=== PATIENT | male | born 1955 | race Caucasian/White ===

== ENCOUNTER → 2016-03-31 | Outpatient (CLI) | payer BC ==
[~2016-03-31] MED LIST: ISOVUE-370 76% 100ML VIAL (Q9967) As Ordered ONE
--- NOTE | 2016-03-31 18:57 | REP ---
Clinical: Follow up mediastinal adenopathy. Technique: Axial contrast enhanced images from the thoracic inlet to the upper abdomen using 100 ml Isovue 370 intravenous contrast material with coronal and sagittal re-formations. Comparison: 10/04/2015. Findings: Moderate/advanced COPD and emphysematous changes with lingular and right lower lobe scarring is unchanged. No acute consolidation, nodule or mass lesion. No pleural effusion/reaction or pneumothorax. Atherosclerotic changes to the coronary arteries and thoracic aorta noted without aortic aneurysm/dissection, cardiomegaly or pericardial effusion. Small stable hiatal hernia noted. Right paratracheal lymph node and smaller lymph nodes are again identified within the mediastinum and unchanged. Surrounding musculoskeletal structures are intact. Limited evaluation of the upper abdomen demonstrates normal bilateral adrenal glands. Impression: Moderate/advanced COPD and emphysematous changes with lingular and right basilar scarring unchanged. Right paratracheal lymph node stable. No new acute mediastinal or pleuroparenchymal process. Signed by Brandon Sidhu MD 03/31/2016 06:49 P
== END ==
LOC: M RAD 17:21
PROVIDERS: ATTEND Internal Medicine Pulmonary Disease
DX: R91.8 Other nonspecific abnormal finding of lung field (principal); J44.9 Chronic obstructive pulmonary disease, unspecified
CPT/HCPCS: 71260; Q9967

== ENCOUNTER → 2016-06-05 | Outpatient (REF) | payer OTHER ==
[2016-06-05 11:29] LABS: MEAN CORPUSCULAR HEMOGLOBIN 29.2 pg (27.0-33.0); MEAN CORPUSCULAR HGB CONC 33.4 g/dl (32.0-36.5); MEAN CORPUSCULAR VOLUME 87.2 fl (80.0-96.0); RED CELL DISTRIBUTION WIDTH 14.2 % (11.5-14.5); WHITE BLOOD COUNT 9.8 K/mm3 (4.0-10.0)
[2016-06-05 11:44] LABS: ALBUMIN 3.9 GM/DL (3.2-5.2); ALKALINE PHOSPHATASE 97 U/L (45-117); ALT/SGPT 28 U/L (12-78); ANION GAP 7 MEQ/L (8-16); AST/SGOT 18 U/L (15-37); BILIRUBIN,TOTAL 0.4 MG/DL (0.2-1.0); BLOOD UREA NITROGEN 17 MG/DL (7-18); CALCIUM LEVEL 8.8 MG/DL (8.5-10.1); CARBON DIOXIDE LEVEL 28 MEQ/L (21-32); CHLORIDE LEVEL 104 MEQ/L (98-107); CHOLESTEROL LEVEL 145 MG/DL (<200); CREATININE FOR GFR 0.84 MG/DL (0.70-1.30); GLOMERULAR FILTRATION RATE > 60.0 (>56); GLUCOSE, FASTING 103 MG/DL (70-105); POTASSIUM SERUM 4.6 MEQ/L (3.5-5.1); SODIUM LEVEL 139 MEQ/L (136-145); TOTAL PROTEIN 7.8 GM/DL (6.4-8.2); TRIGLYCERIDES LEVEL 181 MG/DL (<150)
== END ==
LOC: M SFHCCLAY 06:46
PROVIDERS: ATTEND Family Medicine
DX: I10 Essential (primary) hypertension (principal); I73.89 Other specified peripheral vascular diseases; K22.70 Barrett's esophagus without dysplasia

== ENCOUNTER → 2016-10-09 | Outpatient (REF) | payer OTHER ==
[2016-10-09 11:57] LABS: MEAN CORPUSCULAR HGB CONC 33.6 g/dl (32.0-36.5); MEAN CORPUSCULAR VOLUME 86.2 fl (80.0-96.0); RED CELL DISTRIBUTION WIDTH 15.1 % (11.5-14.5); WHITE BLOOD COUNT 10.4 K/mm3 (4.0-10.0)
[2016-10-09 12:10] LABS: ANION GAP 8 MEQ/L (8-16); BLOOD UREA NITROGEN 19 MG/DL (7-18); CARBON DIOXIDE LEVEL 25 MEQ/L (21-32); CHLORIDE LEVEL 105 MEQ/L (98-107); GLOMERULAR FILTRATION RATE > 60.0 (>49); GLUCOSE, FASTING 95 MG/DL (80-110); SODIUM LEVEL 138 MEQ/L (136-145)
[2016-10-09 12:19] LABS: POTASSIUM SERUM 5.2 MEQ/L (3.5-5.1)
== END ==
LOC: M SFHCCLAY 07:05
PROVIDERS: ATTEND Family Medicine
DX: I10 Essential (primary) hypertension (principal); J44.9 Chronic obstructive pulmonary disease, unspecified

== ENCOUNTER → 2016-10-22 | Outpatient (CLI) | payer BC, OTHER ==
--- NOTE | 2016-10-22 12:26 | REP ---
Clinical: Sacroiliitis. Technique: AP, angled, and oblique views of the sacroiliac joints. Findings: The sacroiliac joints are relatively symmetric and without significant subchondral sclerosis or cystic change, spurring or fusion. Impression: Symmetric, relatively age-appropriate bilateral sacroiliac joints Signed by Brandon Sidhu MD 10/22/2016 12:18 P
== END ==
LOC: M WUC 11:09
PROVIDERS: ATTEND Physician Assistant
DX: M46.1 Sacroiliitis, not elsewhere classified (principal)

== ENCOUNTER → 2016-11-12 | Outpatient (CLI) | payer BC, OTHER ==
--- NOTE | 2016-11-13 10:27 | RADONC ---
RADIATION ONCOLOGY FOLLOWUP NOTE DATE: 11/12/2016 CHART NUMBER: [id number] DIAGNOSIS: Seminoma. STAGE II, T1N2M0. ECOG PERFORMANCE STATUS: 0. FOLLOWUP NOTE: Mr. Warner is a very pleasant 61-year-old white male with the diagnosis of a stage II, T1N2M0, right-sided testicular seminoma who is presenting to us today for routine followup visit 11 years post completion of external beam radiation therapy. The patient is being followed by me at this point for a lung nodule and is presently undergoing routine screening evaluations. REVIEW OF SYSTEMS: The patient's review of systems is noncontributory. Denies nausea, vomiting, fevers, chills, night sweats, diplopia, headaches, anxiety or depression, anorexia, weight loss, visual disturbances, chest pain, urinary or bowel difficulties, bone pain, or neurological problems. PHYSICAL EXAMINATION: The patient is a well-developed, well-nourished male in no acute distress. HEENT exam is normocephalic, atraumatic. Extraocular movements are intact. There is no palpable cervical, supraclavicular, infraclavicular, axillary, or inguinal lymphadenopathy present. Lungs are clear to auscultation and percussion. Heart has a regular rate and rhythm. Abdomen is benign with no hepatosplenomegaly, masses, or tenderness. Rectal examination reveals a normal anal sphincter tone. His prostate is smooth with no evidence of nodularity. Skeletal examination reveals no tenderness to pressure or percussion of the bony skeleton. Extremities reveal no clubbing, cyanosis, or edema. Neurologic exam is grossly intact, as is the remainder of the physical examination. ASSESSMENT: The patient is clinically doing well at this point. I am scheduling him for routine low- dose lung cancer screening CT. In the meantime, I have set him up for a followup visit in our office in 1 year. cc: Shadi Leon, DO [facility] Robbin Ibarra MD
== END ==
LOC: M ONCR 14:47
PROVIDERS: ATTEND Radiology Radiation Oncology
DX: C62.91 Malignant neoplasm of right testis, unspecified whether descended or undescended (principal)

== ENCOUNTER → 2017-04-23 | Outpatient (CLI) | payer BC, OTHER | LOC: M RAD 15:21 | DX: Z12.2 Encounter for screening for malignant neoplasm of respiratory organs (principal) ==

== ENCOUNTER → 2017-09-22 | Outpatient (CLI) | payer BC, OTHER ==
[2017-09-23 12:37] LABS: ANION GAP 7 MEQ/L (8-16); BLOOD UREA NITROGEN 18 MG/DL (7-18); CALCIUM LEVEL 8.7 MG/DL (8.8-10.2); CARBON DIOXIDE LEVEL 25 MEQ/L (21-32); CHLORIDE LEVEL 105 MEQ/L (98-107); CREATININE FOR GFR 0.96 MG/DL (0.70-1.30); GLOMERULAR FILTRATION RATE > 60.0 (>49); GLUCOSE, FASTING 100 MG/DL (70-100); POTASSIUM SERUM 4.5 MEQ/L (3.5-5.1); SODIUM LEVEL 137 MEQ/L (136-145)
== END ==
LOC: M CLY 15:00
DX: R10.12 Left upper quadrant pain (principal); R63.4 Abnormal weight loss; J44.9 Chronic obstructive pulmonary disease, unspecified
CPT/HCPCS: 80048

== ENCOUNTER → 2017-09-28 | Outpatient (CLI) | payer BC, OTHER ==
[~2017-09-28] MED LIST changes: +GASTROGRAFIN SOLUTION 30ML (Q9963) As Ordered; +ISOVUE-370 76% 100ML VIAL (Q9967) As Ordered; -ISOVUE-370 76% 100ML VIAL (Q9967) As Ordered ONE
== END ==
LOC: M RAD 14:13
DX: R63.4 Abnormal weight loss (principal); Z85.47 Personal history of malignant neoplasm of testis; K44.9 Diaphragmatic hernia without obstruction or gangrene; K57.30 Diverticulosis of large intestine without perforation or abscess without bleeding
CPT/HCPCS: Q9963

== ENCOUNTER → 2018-01-13 | Outpatient (CLI) | payer BC, OTHER | LOC: M ONCR 10:57 | DX: C62.91 Malignant neoplasm of right testis, unspecified whether descended or undescended (principal); Z53.8 Procedure and treatment not carried out for other reasons ==

== ENCOUNTER → 2018-03-31 | Outpatient (CLI) | payer BC ==
--- NOTE | 2018-03-31 15:01 | REP ---
Chest two views HISTORY: Hemoptysis Comparison: 09/22/2017 A minimal increase in interstitial markings is present in the lungs consistent with chronic interstitial fibrosis. The heart is normal in size. The pulmonary vasculature is normal in appearance. The bony structure is intact. IMPRESSION: Chronic interstitial fibrosis.
== END ==
LOC: M CLY 14:24
PROVIDERS: ATTEND Family Medicine
DX: R04.2 Hemoptysis (principal); J84.10 Pulmonary fibrosis, unspecified

== ENCOUNTER → 2018-05-12 | Outpatient (CLI) | payer BC, OTHER ==
--- NOTE | 2018-05-12 16:09 | REP ---
Clinical: Lung screening. History of nicotine dependence Comparison: 03/31/2016 Technique: Axial low-dose noncontrast images from the thoracic inlet to the upper abdomen using lung screening technique. Findings: The lung lam demonstrate moderate/advanced COPD and emphysematous changes along with chronic bibasilar fibroatelectatic changes. No acute consolidation, significant nodule or mass lesion appreciated. No pleural effusion/reaction or pneumothorax. Tracheobronchial tree is patent. Mediastinum demonstrates mild atherosclerotic changes of the coronary arteries without cardiomegaly. A moderate hiatal hernia suggested. Impression: 1. Lung-RADS category I-S. No nodule or suspicious abnormality. Chronic COPD/emphysematous changes with bibasilar scarring similar to 2017. Management recommendations include annual low-dose CT evaluation. 2. Small to moderate hiatal hernia suggested. 3. Atherosclerotic disease. Electronically Signed by Brandon Sidhu MD 05/12/2018 04:01 P
== END ==
LOC: M RAD 15:41
PROVIDERS: ATTEND Radiology Radiation Oncology
DX: Z12.2 Encounter for screening for malignant neoplasm of respiratory organs (principal); Z87.891 Personal history of nicotine dependence; J43.9 Emphysema, unspecified; I25.10 Atherosclerotic heart disease of native coronary artery without angina pectoris

== ENCOUNTER → 2018-06-22 | Outpatient (CLI) | payer BC, OTHER ==
--- NOTE | 2018-06-22 16:57 | REP ---
REASON: Cough. COMPARISON: Multiple, the latest 04/02/2018 Basilar fibrotic changes noted status quo. There is no significant change compared to multiple priors. There are no acute patchy parenchymal opacities or pleural effusions. The heart is not enlarged. The osseous structure is stable and intact. IMPRESSION:No evidence of acute cardiopulmonary disease. Stable appearing chronic changes as described above. Correlate clinically to rule out the possibility of acute disease superimposed on chronic change.
== END ==
LOC: M CLY 15:32
PROVIDERS: ATTEND Family Medicine
DX: R05 Cough (principal); R04.2 Hemoptysis

== ENCOUNTER → 2018-07-09 | Outpatient (REF) | payer OTHER ==
[2018-07-09 11:17] LABS: HEMATOCRIT 50.5 % (42.0-52.0); HEMOGLOBIN 16.5 g/dl (13.5-17.5); MEAN CORPUSCULAR HEMOGLOBIN 29.1 pg (27.0-33.0); MEAN CORPUSCULAR HGB CONC 32.7 g/dl (32.0-36.5); MEAN CORPUSCULAR VOLUME 89.1 fl (80.0-96.0); PLATELET COUNT, AUTOMATED 254 10^3/uL (150-450); RED BLOOD COUNT 5.67 10^6/uL (4.30-6.10); WHITE BLOOD COUNT 10.6 10^3/uL (4.0-10.0)
[2018-07-09 11:33] LABS: ALBUMIN 3.7 GM/DL (3.2-5.2); ALT/SGPT 47 U/L (12-78); BILIRUBIN,TOTAL 0.4 MG/DL (0.2-1.0); BLOOD UREA NITROGEN 20 MG/DL (7-18); CALCIUM LEVEL 8.7 MG/DL (8.8-10.2); CARBON DIOXIDE LEVEL 26 MEQ/L (21-32); CHLORIDE LEVEL 106 MEQ/L (98-107); CHOLESTEROL LEVEL 142 MG/DL (<200); CHOLESTEROL RISK RATIO 4.303 (<5); CREATININE FOR GFR 0.87 MG/DL (0.70-1.30); GLOMERULAR FILTRATION RATE > 60.0 (>49); GLUCOSE, FASTING 95 MG/DL (70-100); HDL CHOLESTEROL 33 MG/DL (>40); LDL CHOLESTEROL 77 MG/DL (<100); NON-HDL-C 109 MG/DL; POTASSIUM SERUM 4.9 MEQ/L (3.5-5.1); SODIUM LEVEL 138 MEQ/L (136-145); TOTAL PROTEIN 8.2 GM/DL (6.4-8.2); TRIGLYCERIDES LEVEL 160 MG/DL (<150)
== END ==
LOC: M SFHCCLAY 06:55
PROVIDERS: ATTEND Family Medicine
DX: Z12.5 Encounter for screening for malignant neoplasm of prostate (principal); J44.9 Chronic obstructive pulmonary disease, unspecified; I73.89 Other specified peripheral vascular diseases; I10 Essential (primary) hypertension; K22.70 Barrett's esophagus without dysplasia
CPT/HCPCS: 80053; 80061; 85027; G0103

== ENCOUNTER → 2018-12-24 | Outpatient (REF) | payer OTHER, BC | LOC: M LAB REF 11:31 | PROVIDERS: ATTEND Internal Medicine Pulmonary Disease | DX: R91.8 Other nonspecific abnormal finding of lung field (principal) ==

== ENCOUNTER → 2019-02-02 | Outpatient (CLI) | payer BC, OTHER ==
[~2019-02-02] MED LIST changes: -GASTROGRAFIN SOLUTION 30ML (Q9963) As Ordered; -ISOVUE-370 76% 100ML VIAL (Q9967) As Ordered; +ISOVUE-370 76% 100ML VIAL (Q9967) As Ordered ONE
--- NOTE | 2019-02-02 18:47 | REP ---
HISTORY: Chronic lung field changes seen on prior low dose screening CT examination of the chest on 05/12/2018. All prior CT examinations of the chest have been reviewed. CONTRAST: 100 mL Isovue-370. There is no mediastinal or hilar adenopathy. There are borderline sized mediastinal lymph nodes essentially unchanged from 03/31/2016. The large right paratracheal lymph node seen on that prior exam is no longer present. The imaged upper abdomen and imaged osseous structures are unchanged. There are no pleural or pericardial effusions. Evaluation of the lung lam again show rather extensive emphysematous changes, status quo. Curvilinear bibasilar densities are again noted likely representing chronic fibrotic and/or subsegmental atelectatic changes. There is widespread cylindrical bronchiectasis, status quo. No new nodules seem to have developed. IMPRESSION: 1. Mediastinal and hilar lymph nodes as described above. 2. Chronic lung field changes as described above. Electronically Signed by Brennen Moreno DO 02/03/2019 04:15 P
== END ==
LOC: M RAD 15:26
PROVIDERS: ATTEND Internal Medicine Pulmonary Disease
DX: J34.9 Unspecified disorder of nose and nasal sinuses (principal); J98.4 Other disorders of lung; J47.9 Bronchiectasis, uncomplicated
CPT/HCPCS: 71260; Q9967

== ENCOUNTER → 2019-09-08 | Outpatient (CLI) | payer BC, OTHER ==
--- NOTE | 2019-09-08 08:28 | REP ---
Clinical: COPD with chest pain . Comparison: 06/22/2018 . Technique: PA and lateral. Findings: The mediastinum and cardiac silhouette are normal. The lung lam demonstrate chronic interstitial changes consistent with the given history of COPD. No acute consolidation, effusion, or pneumothorax. The skeletal structures are intact and normal. Impression: 1. Stable chronic changes related to COPD. 2. No acute cardiopulmonary process. Electronically Signed by Brandon Sidhu MD 09/08/2019 08:20 A
--- NOTE | 2019-09-08 08:32 | REP ---
Clinical: Coccyalgia Technique: AP, AP oblique and lateral views of the sacrum and coccyx (four total views). Findings: The bilateral sacroiliac joints appear symmetric and normal. The sacrum and coccyx appear intact. The surrounding soft tissues are grossly unremarkable. Evidence for peripheral vascular disease noted. Impression: Relatively normal appearance to the sacrum/coccyx and sacroiliac joints. Electronically Signed by Brandon Sidhu MD 09/08/2019 08:23 A
== END ==
LOC: M CLY 07:40
PROVIDERS: ATTEND Family Medicine
DX: J44.9 Chronic obstructive pulmonary disease, unspecified (principal); M53.3 Sacrococcygeal disorders, not elsewhere classified

== ENCOUNTER → 2020-03-19 | Outpatient (CLI) | payer BC, OTHER ==
--- NOTE | 2020-03-19 10:32 | REP ---
INDICATION: HX OF SMOKING COMPARISON: 05/12/2018 TECHNIQUE: Axial noncontrast images from the thoracic inlet to the upper abdomen using low-dose lung screening technique (LDCT). FINDINGS: Advanced emphysematous changes with scattered bullae, bronchiectasis and minimal scattered scarring again noted and essentially unchanged. No consolidation, significant nodule, or mass lesion. Tracheobronchial tree is patent. Limited evaluation of the mediastinum demonstrates significant atherosclerotic disease along with small hiatal hernia. IMPRESSION: Lung-RADS category 1. No significant nodule or mass lesion. Chronic emphysematous changes similar to prior examination. Management recommendations include annual low-dose surveillance. <Electronically signed by Brandon Sidhu > 03/19/20 1027
== END ==
LOC: M RAD 09:59
PROVIDERS: ATTEND Family Medicine
DX: Z12.2 Encounter for screening for malignant neoplasm of respiratory organs (principal); Z87.891 Personal history of nicotine dependence; J43.9 Emphysema, unspecified

== ENCOUNTER → 2020-08-08 | Outpatient (REF) | payer OTHER ==
[2020-08-09 12:06] LABS: HEMATOCRIT 55.3 % (42.0-52.0); HEMOGLOBIN 17.5 g/dl (13.5-17.5); MEAN CORPUSCULAR HEMOGLOBIN 27.4 pg (27.0-33.0); MEAN CORPUSCULAR HGB CONC 31.6 g/dl (32.0-36.5); MEAN CORPUSCULAR VOLUME 86.5 fl (80.0-96.0); PLATELET COUNT, AUTOMATED 317 10^3/uL (150-450); RED BLOOD COUNT 6.39 10^6/uL (4.30-6.10); WHITE BLOOD COUNT 11.1 10^3/uL (4.0-10.0)
[2020-08-09 12:35] LABS: ALBUMIN 3.3 GM/DL (3.2-5.2); ALT/SGPT 67 U/L (12-78); BILIRUBIN,TOTAL 0.4 MG/DL (0.2-1.0); BLOOD UREA NITROGEN 19 MG/DL (7-18); CALCIUM LEVEL 9.1 MG/DL (8.8-10.2); CARBON DIOXIDE LEVEL 27 MEQ/L (21-32); CHLORIDE LEVEL 104 MEQ/L (98-107); CREATININE FOR GFR 0.98 MG/DL (0.70-1.30); FREE T4 1.17 NG/DL (0.76-1.46); GLOMERULAR FILTRATION RATE > 60.0 (>49); GLUCOSE, FASTING 91 MG/DL (70-100); POTASSIUM SERUM 5.8 MEQ/L (3.5-5.1); SODIUM LEVEL 137 MEQ/L (136-145); TOTAL PROTEIN 7.7 GM/DL (6.4-8.2)
== END ==
LOC: M SFHCCLAY 14:16
PROVIDERS: ATTEND Family Medicine
DX: R63.4 Abnormal weight loss (principal); I10 Essential (primary) hypertension; E78.2 Mixed hyperlipidemia; J44.9 Chronic obstructive pulmonary disease, unspecified; E29.1 Testicular hypofunction

== ENCOUNTER → 2020-08-16 | Outpatient (REF) | payer OTHER | LOC: M SFHCCLAY 13:07 | PROVIDERS: ATTEND Family Medicine | DX: E87.5 Hyperkalemia (principal) ==

== ENCOUNTER → 2020-09-11 | Outpatient (REF) | payer OTHER ==
[2020-09-11 11:33] LABS: HEMOGLOBIN 16.4 g/dl (13.5-17.5); MEAN CORPUSCULAR HGB CONC 32.2 g/dl (32.0-36.5); PLATELET COUNT, AUTOMATED 330 10^3/uL (150-450); RED BLOOD COUNT 5.86 10^6/uL (4.30-6.10); WHITE BLOOD COUNT 12.4 10^3/uL (4.0-10.0)
[2020-09-11 11:38] LABS: BLOOD UREA NITROGEN 19 MG/DL (7-18); CALCIUM LEVEL 9.4 MG/DL (8.8-10.2); CARBON DIOXIDE LEVEL 27 MEQ/L (21-32); CHLORIDE LEVEL 105 MEQ/L (98-107); CREATININE FOR GFR 0.83 MG/DL (0.70-1.30); GLOMERULAR FILTRATION RATE > 60.0 (>49); GLUCOSE, FASTING 116 MG/DL (70-100); POTASSIUM SERUM 4.4 MEQ/L (3.5-5.1); SODIUM LEVEL 138 MEQ/L (136-145)
== END ==
LOC: M SFHCCLAY 08:37
PROVIDERS: ATTEND Family Medicine
DX: R23.2 Flushing (principal); E29.1 Testicular hypofunction

== ENCOUNTER → 2020-11-30 | Outpatient (REF) | payer OTHER ==
[2020-11-30 12:10] LABS: BASO # 0.1 10^3/uL (0.0-0.2); BASO % 0.8 % (0.0-1.0); EOS # 0.3 10^3/uL (0.0-0.5); EOS % 3.2 % (0.0-3.0); HEMATOCRIT 50.4 % (42.0-52.0); HEMOGLOBIN 16.3 g/dl (13.5-17.5); LYMPH # 1.8 10^3/uL (1.5-5.0); LYMPH % 18.4 % (24.0-44.0); MEAN CORPUSCULAR HEMOGLOBIN 27.3 pg (27.0-33.0); MEAN CORPUSCULAR HGB CONC 32.3 g/dl (32.0-36.5); MEAN CORPUSCULAR VOLUME 84.6 fl (80.0-96.0); MONO # 0.6 10^3/uL (0.0-0.8); MONO % 5.6 % (2.0-8.0); NEUTROPHILS # 7.2 10^3/uL (1.5-8.5); NEUTROPHILS % 71.7 % (36.0-66.0); PLATELET COUNT, AUTOMATED 372 10^3/uL (150-450); RED BLOOD COUNT 5.96 10^6/uL (4.30-6.10)
[2020-11-30 12:37] LABS: BLOOD UREA NITROGEN 14 MG/DL (7-18); CALCIUM LEVEL 9.4 MG/DL (8.8-10.2); CARBON DIOXIDE LEVEL 28 MEQ/L (21-32); CHLORIDE LEVEL 102 MEQ/L (98-107); CREATININE FOR GFR 0.87 MG/DL (0.70-1.30); GLOMERULAR FILTRATION RATE > 60.0 (>49); GLUCOSE, FASTING 139 MG/DL (70-100); POTASSIUM SERUM 3.9 MEQ/L (3.5-5.1); SODIUM LEVEL 134 MEQ/L (136-145)
== END ==
LOC: M SFHCCLAY 08:46
PROVIDERS: ATTEND Family Medicine
DX: D72.829 Elevated white blood cell count, unspecified (principal); R73.01 Impaired fasting glucose

== ENCOUNTER → 2021-01-28 | Outpatient (REF) | payer OTHER ==
[2021-01-29 12:00] LABS: BASO # 0.1 10^3/uL (0.0-0.2); BASO % 0.7 % (0.0-1.0); EOS # 0.1 10^3/uL (0.0-0.5); HEMATOCRIT 54.5 % (42.0-52.0); HEMOGLOBIN 17.2 g/dl (13.5-17.5); LYMPH # 1.6 10^3/uL (1.5-5.0); LYMPH % 14.7 % (24.0-44.0); MEAN CORPUSCULAR HEMOGLOBIN 26.9 pg (27.0-33.0); MEAN CORPUSCULAR HGB CONC 31.6 g/dl (32.0-36.5); MEAN CORPUSCULAR VOLUME 85.2 fl (80.0-96.0); MONO # 0.7 10^3/uL (0.0-0.8); MONO % 6.2 % (2.0-8.0); NEUTROPHILS # 8.3 10^3/uL (1.5-8.5); NEUTROPHILS % 77.1 % (36.0-66.0); PLATELET COUNT, AUTOMATED 352 10^3/uL (150-450); WHITE BLOOD COUNT 10.8 10^3/uL (4.0-10.0)
[2021-01-29 12:26] LABS: ALBUMIN 3.4 GM/DL (3.2-5.2); ALT/SGPT 115 U/L (12-78); BILIRUBIN,TOTAL 0.5 MG/DL (0.2-1.0); BLOOD UREA NITROGEN 16 MG/DL (7-18); C REACTIVE PROTEIN QUANTITATIV 1.02 MG/DL (0.00-0.30); CALCIUM LEVEL 9.5 MG/DL (8.8-10.2); CARBON DIOXIDE LEVEL 23 MEQ/L (21-32); CHLORIDE LEVEL 101 MEQ/L (98-107); CREATININE FOR GFR 0.97 MG/DL (0.70-1.30); GLOMERULAR FILTRATION RATE > 60.0 (>49); GLUCOSE, FASTING 94 MG/DL (70-100); POTASSIUM SERUM 4.4 MEQ/L (3.5-5.1); SODIUM LEVEL 134 MEQ/L (136-145); TOTAL PROTEIN 7.9 GM/DL (6.4-8.2)
[2021-01-29 12:46] LABS: ERYTHROCYTE SEDIMENTATION RATE 8 mm/hr (0-20)
[2021-01-30 20:07] LABS: ANA (HEP2) Negative (.); Lyme Disease IgG/IgM Antibodie <0.91 ISR (0.00-0.90); Lyme Disease IgM Ab Quantitati <0.80 index (0.00-0.79)
== END ==
LOC: M SFHCCLAY 15:29
PROVIDERS: ATTEND Physician Assistant
DX: R42 Dizziness and giddiness (principal)

== ENCOUNTER → 2021-02-06 | Outpatient (REF) | payer OTHER ==
[2021-02-06 11:46] LABS: BASO # 0.1 10^3/uL (0.0-0.2); BASO % 0.9 % (0.0-1.0); EOS # 0.3 10^3/uL (0.0-0.5); HEMATOCRIT 53.8 % (42.0-52.0); HEMOGLOBIN 17.4 g/dl (13.5-17.5); LYMPH # 1.9 10^3/uL (1.5-5.0); LYMPH % 19.1 % (24.0-44.0); MEAN CORPUSCULAR HEMOGLOBIN 26.7 pg (27.0-33.0); MEAN CORPUSCULAR HGB CONC 32.3 g/dl (32.0-36.5); MEAN CORPUSCULAR VOLUME 82.5 fl (80.0-96.0); MONO # 0.7 10^3/uL (0.0-0.8); MONO % 7.1 % (2.0-8.0); NEUTROPHILS # 6.8 10^3/uL (1.5-8.5); NEUTROPHILS % 69.5 % (36.0-66.0); PLATELET COUNT, AUTOMATED 374 10^3/uL (150-450); RED BLOOD COUNT 6.52 10^6/uL (4.30-6.10); WHITE BLOOD COUNT 9.8 10^3/uL (4.0-10.0)
[2021-02-06 12:25] LABS: ALBUMIN 3.3 GM/DL (3.2-5.2); ALT/SGPT 86 U/L (12-78); BILIRUBIN,DIRECT 0.3 MG/DL (0.0-0.2); BILIRUBIN,TOTAL 0.6 MG/DL (0.2-1.0); TOTAL PROTEIN 8.1 GM/DL (6.4-8.2)
[2021-02-06 12:37] LABS: HEPATITIS B SURFACE ANTIGEN NEGATIVE (NEGATIVE)
[2021-02-06 13:05] LABS: HEPATITIS B CORE ANTIBODY IGM NEGATIVE (NEGATIVE); HEPATITIS C VIRUS ABY INDEX 0.1 INDEX (<0.8)
== END ==
LOC: M SFHCCLAY 09:25
PROVIDERS: ATTEND Physician Assistant
DX: R79.89 Other specified abnormal findings of blood chemistry (principal)

== ENCOUNTER → 2021-03-27 | Outpatient (REF) | payer OTHER ==
[2021-03-27 11:40] LABS: BASO # 0.1 10^3/uL (0.0-0.2); BASO % 1.2 % (0.0-1.0); EOS # 0.4 10^3/uL (0.0-0.5); EOS % 3.7 % (0.0-3.0); HEMATOCRIT 56.1 % (42.0-52.0); HEMOGLOBIN 17.7 g/dl (13.5-17.5); LYMPH % 21.5 % (24.0-44.0); MEAN CORPUSCULAR HEMOGLOBIN 26.5 pg (27.0-33.0); MEAN CORPUSCULAR HGB CONC 31.6 g/dl (32.0-36.5); MEAN CORPUSCULAR VOLUME 84.1 fl (80.0-96.0); MONO # 0.7 10^3/uL (0.0-0.8); MONO % 7.2 % (2.0-8.0); NEUTROPHILS # 6.2 10^3/uL (1.5-8.5); PLATELET COUNT, AUTOMATED 328 10^3/uL (150-450); RED BLOOD COUNT 6.67 10^6/uL (4.30-6.10); WHITE BLOOD COUNT 9.3 10^3/uL (4.0-10.0)
[2021-03-27 12:16] LABS: ALBUMIN 3.4 GM/DL (3.2-5.2); ALT/SGPT 69 U/L (12-78); BILIRUBIN,TOTAL 0.4 MG/DL (0.2-1.0); BLOOD UREA NITROGEN 16 MG/DL (7-18); CALCIUM LEVEL 9.5 MG/DL (8.8-10.2); CARBON DIOXIDE LEVEL 30 MEQ/L (21-32); CHLORIDE LEVEL 102 MEQ/L (98-107); CREATININE FOR GFR 0.95 MG/DL (0.70-1.30); GLOMERULAR FILTRATION RATE > 60.0 (>49); GLUCOSE, FASTING 106 MG/DL (70-100); POTASSIUM SERUM 4.6 MEQ/L (3.5-5.1); SODIUM LEVEL 137 MEQ/L (136-145); TOTAL PROTEIN 7.7 GM/DL (6.4-8.2)
[2021-03-28 23:07] LABS: ERYTHROPOIETIN 11.3 mIU/mL (2.6-18.5)
== END ==
LOC: M SFHCCLAY 09:29
PROVIDERS: ATTEND Physician Assistant
DX: R71.8 Other abnormality of red blood cells (principal)

== ENCOUNTER → 2021-04-04 | Outpatient (REF) | payer OTHER ==
[2021-04-04 12:18] LABS: ALBUMIN 3.5 GM/DL (3.2-5.2); ALT/SGPT 64 U/L (12-78); BILIRUBIN,TOTAL 0.5 MG/DL (0.2-1.0); BLOOD UREA NITROGEN 15 MG/DL (7-18); CALCIUM LEVEL 10.1 MG/DL (8.8-10.2); CARBON DIOXIDE LEVEL 28 MEQ/L (21-32); CHLORIDE LEVEL 102 MEQ/L (98-107); CREATININE FOR GFR 0.89 MG/DL (0.70-1.30); FERRITIN 59 NG/ML (26-388); GLOMERULAR FILTRATION RATE > 60.0 (>49); GLUCOSE, FASTING 107 MG/DL (70-100); IRON (FE) 66 UG/DL (65-175); PERCENT SATURATION 19.2 % (19.7-50.0); POTASSIUM SERUM 4.5 MEQ/L (3.5-5.1); SODIUM LEVEL 139 MEQ/L (136-145); TOTAL IRON BINDING CAPACITY 343 UG/DL (250-450); TOTAL PROTEIN 7.9 GM/DL (6.4-8.2)
== END ==
LOC: M SFHCCLAY 09:09
PROVIDERS: ATTEND Family Medicine
DX: Z87.891 Personal history of nicotine dependence (principal)

== ENCOUNTER → 2021-04-16 | Outpatient (CLI) | payer BC, OTHER | LOC: M RAD 06:28 | PROVIDERS: ATTEND Family Medicine | DX: R79.89 Other specified abnormal findings of blood chemistry (principal) ==

== ENCOUNTER → 2021-04-29 | Outpatient (CLI) | payer BC, OTHER | LOC: M RAD 13:27 | PROVIDERS: ATTEND Family Medicine | DX: Z87.891 Personal history of nicotine dependence (principal) ==

== ENCOUNTER → 2021-05-08 | Outpatient (REF) | payer OTHER ==
[2021-05-08 15:48] LABS: BASO # 0.1 10^3/uL (0.0-0.2); BASO % 0.8 % (0.0-1.0); EOS # 0.2 10^3/uL (0.0-0.5); EOS % 1.5 % (0.0-3.0); HEMATOCRIT 51.8 % (42.0-52.0); HEMOGLOBIN 17.1 g/dl (13.5-17.5); LYMPH # 1.9 10^3/uL (1.5-5.0); LYMPH % 15.5 % (24.0-44.0); MEAN CORPUSCULAR HEMOGLOBIN 27.5 pg (27.0-33.0); MEAN CORPUSCULAR VOLUME 83.3 fl (80.0-96.0); MONO # 0.9 10^3/uL (0.0-0.8); MONO % 7.1 % (2.0-8.0); NEUTROPHILS % 74.8 % (36.0-66.0); PLATELET COUNT, AUTOMATED 271 10^3/uL (150-450); RED BLOOD COUNT 6.22 10^6/uL (4.30-6.10)
== END ==
LOC: M SFHCCLAY 10:23
PROVIDERS: ATTEND Physician Assistant
DX: R42 Dizziness and giddiness (principal)

== ENCOUNTER 2021-06-30 07:20 | Emergency (ER) | payer BC, OTHER ==
[~2021-06-30] VITALS: Ht 170.2 cm; Wt 63.2 kg
[2021-06-30] MEDS ORDERED: PANT40TA29 (07:39)
[2021-06-30] MEDS ORDERED: PARO20TA3 (07:39)
[2021-06-30] MEDS ORDERED: ALPR0.5T3 (07:39)
[2021-06-30] MEDS ORDERED: ROSU10TA6 (07:39)
[2021-06-30] MEDS ORDERED: BISO1TAB17 (07:39)
[2021-06-30] MEDS ORDERED: GABA-282 (07:39)
[2021-06-30] MEDS ORDERED: AMLO1TAB25 (07:39)
[2021-06-30] MEDS ORDERED: LOSA50TA28 (07:39)
[2021-06-30] MEDS ORDERED: CLOP75TA2 (07:39)
[2021-06-30] MEDS ORDERED: METH1CAP (07:39)
[2021-06-30] MEDS ORDERED: SPIR1AER (07:39)
[2021-06-30 09:25] LABS: HEMOGLOBIN 17.1 g/dl (13.5-17.5); MEAN CORPUSCULAR HGB CONC 33.5 g/dl (32.0-36.5); MEAN CORPUSCULAR VOLUME 83.5 fl (80.0-96.0); PLATELET COUNT, AUTOMATED 322 10^3/uL (150-450); RED BLOOD COUNT 6.11 10^6/uL (4.30-6.10); WHITE BLOOD COUNT 12.1 10^3/uL (4.0-10.0)
[2021-06-30 09:41] LABS: RSV AMPLIFICATION NEGATIVE (NEGATIVE)
[2021-06-30 09:54] LABS: ACETAMINOPHEN LEVEL < 2.0 UG/ML (10.0-30.0); ALBUMIN 3.6 GM/DL (3.2-5.2); ALT/SGPT 166 U/L (12-78); BILIRUBIN,DIRECT 0.2 MG/DL (0.0-0.2); BILIRUBIN,TOTAL 0.7 MG/DL (0.2-1.0); BLOOD UREA NITROGEN 16 MG/DL (7-18); CALCIUM LEVEL 9.7 MG/DL (8.8-10.2); CARBON DIOXIDE LEVEL 26 MEQ/L (21-32); CHLORIDE LEVEL 101 MEQ/L (98-107); CREATININE FOR GFR 0.91 MG/DL (0.70-1.30); ETHYL ALCOHOL (ETHANOL) 0.003 % (0.000-0.010); GLOMERULAR FILTRATION RATE > 60.0 (>49); GLUCOSE, FASTING 121 MG/DL (70-100); POTASSIUM SERUM 3.5 MEQ/L (3.5-5.1); SALICYLATE LEVEL 2.8 MG/DL (5.0-30.0); SODIUM LEVEL 135 MEQ/L (136-145); THYROID STIMULATING HORMONE 0.862 uIU/ML (0.358-3.740); TOTAL PROTEIN 8.1 GM/DL (6.4-8.2)
[2021-06-30 10:08] LABS: AMPHETAMINES LEVEL URINE NEGATIVE (NEGATIVE); BARBITURATES URINE NEGATIVE (NEGATIVE); BENZODIAZEPINES URINE NEGATIVE (NEGATIVE); CANNABINOIDS URINE NEGATIVE (NEGATIVE); COCAINE METABOLITE URINE NEGATIVE (NEGATIVE); METHADONE URINE NEGATIVE (NEGATIVE); OPIATES URINE NEGATIVE (NEGATIVE); PHENCYCLIDINE URINE NEGATIVE (NEGATIVE)
[2021-06-30 12:51] VITALS: BP 127/67
== END 2021-06-30 12:59 | disposition home or self-care (01) ==
LOC: M ED 07:20
DX: F41.9 Anxiety disorder, unspecified (principal); G47.00 Insomnia, unspecified; I10 Essential (primary) hypertension; J44.9 Chronic obstructive pulmonary disease, unspecified

== ENCOUNTER → 2021-08-02 | Outpatient (REF) | payer MEDICARE, OTHER ==
[~2021-08-02] MED LIST changes: +ALPR0.5T3; +AMLO1TAB25; +BISO1TAB17; +CLOP75TA2; +GABA-282; -ISOVUE-370 76% 100ML VIAL (Q9967) As Ordered ONE; +LOSA50TA28; +METH1CAP; +PANT40TA29; +PARO20TA3; +ROSU10TA6; +SPIR1AER
[2021-08-02 11:24] LABS: HEMATOCRIT 53.2 % (42.0-52.0); HEMOGLOBIN 17.5 g/dl (13.5-17.5); MEAN CORPUSCULAR HEMOGLOBIN 28.7 pg (27.0-33.0); MEAN CORPUSCULAR HGB CONC 32.9 g/dl (32.0-36.5); MEAN CORPUSCULAR VOLUME 87.4 fl (80.0-96.0); PLATELET COUNT, AUTOMATED 299 10^3/uL (150-450); RED BLOOD COUNT 6.09 10^6/uL (4.30-6.10); WHITE BLOOD COUNT 10.1 10^3/uL (4.0-10.0)
[2021-08-02 12:06] LABS: ALBUMIN 3.8 GM/DL (3.2-5.2); ALT/SGPT 260 U/L (12-78); BILIRUBIN,TOTAL 0.8 MG/DL (0.2-1.0); BLOOD UREA NITROGEN 14 MG/DL (7-18); CALCIUM LEVEL 10.2 MG/DL (8.8-10.2); CARBON DIOXIDE LEVEL 25 MEQ/L (21-32); CHLORIDE LEVEL 103 MEQ/L (98-107); CHOLESTEROL LEVEL 166 MG/DL (<200); CHOLESTEROL RISK RATIO 4.048 (<5); CREATININE FOR GFR 0.94 MG/DL (0.70-1.30); FREE T4 1.39 NG/DL (0.76-1.46); GLOMERULAR FILTRATION RATE > 60.0 (>49); GLUCOSE, FASTING 101 MG/DL (70-100); HDL CHOLESTEROL 41 MG/DL (>40); LDL CHOLESTEROL 89 MG/DL (<100); NON-HDL-C 125 MG/DL; POTASSIUM SERUM 4.8 MEQ/L (3.5-5.1); SODIUM LEVEL 137 MEQ/L (136-145); TOTAL PROTEIN 7.7 GM/DL (6.4-8.2); TRIGLYCERIDES LEVEL 181 MG/DL (<150)
== END ==
LOC: M SFHCCLAY 09:00
PROVIDERS: ATTEND Family Medicine
DX: M50.90 Cervical disc disorder, unspecified, unspecified cervical region (principal); M54.17 Radiculopathy, lumbosacral region; R63.4 Abnormal weight loss; F41.1 Generalized anxiety disorder; K22.70 Barrett's esophagus without dysplasia; E78.00 Pure hypercholesterolemia, unspecified

== ENCOUNTER → 2021-08-06 | Outpatient (REF) | payer MEDICARE, OTHER ==
[2021-08-06 16:31] LABS: FERRITIN 234 NG/ML (26-388); IRON (FE) 121 UG/DL (65-175); PERCENT SATURATION 34.4 % (19.7-50.0); TOTAL IRON BINDING CAPACITY 352 UG/DL (250-450)
[2021-08-06 16:40] LABS: HEPATITIS B SURFACE ANTIBODY NEGATIVE (POSITIVE)
[2021-08-06 16:51] LABS: HEPATITIS B SURFACE ANTIGEN NEGATIVE (NEGATIVE)
[2021-08-06 17:19] LABS: HEPATITIS C VIRUS ABY INDEX 0.1 INDEX (<0.8)
== END ==
LOC: M SFHCCAPE 09:46
PROVIDERS: ATTEND Family Medicine
DX: R79.89 Other specified abnormal findings of blood chemistry (principal)

== ENCOUNTER → 2021-08-22 | Outpatient (CLI) | payer MEDICARE, BC, OTHER | LOC: M RAD 15:30 | PROVIDERS: ATTEND Physician Assistant | DX: R10.9 Unspecified abdominal pain (principal); K59.00 Constipation, unspecified; J44.9 Chronic obstructive pulmonary disease, unspecified ==

== ENCOUNTER → 2021-08-25 | Outpatient (REF) | payer MEDICARE, OTHER | LOC: M LAB REF 13:20 | PROVIDERS: ATTEND Physician Assistant Medical | DX: N39.0 Urinary tract infection, site not specified (principal) ==

== ENCOUNTER 2021-08-27 01:51 | Emergency (ER) | payer MEDICARE, OTHER ==
[~2021-08-27] VITALS: Ht 170.2 cm; Wt 64.5 kg
[2021-08-27 01:51] VITALS: BP 139/74
== END 2021-08-27 03:40 | disposition left against medical advice (07) ==
LOC: M ED 01:51
DX: Z53.29 Procedure and treatment not carried out because of patient's decision for other reasons (principal)

== ENCOUNTER 2021-08-31 16:19 | Inpatient (IN) | payer MEDICARE, BC, OTHER ==
[~2021-08-31] VITALS: Ht 170.2 cm; Wt 60.5 kg
[~2021-08-31 16:19] MED LIST changes: -AMLO1TAB25; +AMLO1TAB25 PO; -BISO1TAB17; +BISO1TAB17 PO; -CLOP75TA2; +CLOP75TA2 PO; -LOSA50TA28; +LOSA50TA28 PO; -METH1CAP; +METH1CAP PO; -PANT40TA29; +PANT40TA29 PO; -ROSU10TA6; +ROSU10TA6 PO; -SPIR1AER; +SPIR1AER PO
[2021-08-31 17:15] LABS: HEMATOCRIT 45.5 % (42.0-52.0); HEMOGLOBIN 15.8 g/dl (13.5-17.5); MEAN CORPUSCULAR HGB CONC 34.7 g/dl (32.0-36.5); MEAN CORPUSCULAR VOLUME 86.3 fl (80.0-96.0); PLATELET COUNT, AUTOMATED 258 10^3/uL (150-450); RED BLOOD COUNT 5.27 10^6/uL (4.30-6.10); WHITE BLOOD COUNT 10.7 10^3/uL (4.0-10.0)
[2021-08-31 17:38] LABS: AMPHETAMINES LEVEL URINE NEGATIVE (NEGATIVE); BARBITURATES URINE NEGATIVE (NEGATIVE); BENZODIAZEPINES URINE NEGATIVE (NEGATIVE); CANNABINOIDS URINE NEGATIVE (NEGATIVE); COCAINE METABOLITE URINE NEGATIVE (NEGATIVE); METHADONE URINE NEGATIVE (NEGATIVE); OPIATES URINE NEGATIVE (NEGATIVE); PHENCYCLIDINE URINE NEGATIVE (NEGATIVE)
[2021-08-31 17:50] LABS: RSV AMPLIFICATION NEGATIVE (NEGATIVE)
[2021-08-31] MEDS ORDERED: FLUO20CA22 PO (17:53)
[2021-08-31] MEDS ORDERED: BUSP15TA47 PO (17:53)
[2021-08-31 17:56] LABS: ACETAMINOPHEN LEVEL < 2.0 UG/ML (10.0-30.0); ALBUMIN 3.5 GM/DL (3.2-5.2); ALT/SGPT 231 U/L (12-78); BILIRUBIN,DIRECT 0.2 MG/DL (0.0-0.2); BILIRUBIN,TOTAL 0.3 MG/DL (0.2-1.0); BLOOD UREA NITROGEN 19 MG/DL (7-18); CALCIUM LEVEL 9.1 MG/DL (8.8-10.2); CARBON DIOXIDE LEVEL 27 MEQ/L (21-32); CHLORIDE LEVEL 101 MEQ/L (98-107); CREATININE FOR GFR 0.86 MG/DL (0.70-1.30); ETHYL ALCOHOL (ETHANOL) < 0.003 % (0.000-0.010); GLOMERULAR FILTRATION RATE > 60.0 (>49); GLUCOSE, FASTING 125 MG/DL (70-100); POTASSIUM SERUM 3.6 MEQ/L (3.5-5.1); SALICYLATE LEVEL 3.5 MG/DL (5.0-30.0); SODIUM LEVEL 137 MEQ/L (136-145); TOTAL PROTEIN 7.1 GM/DL (6.4-8.2)
[2021-08-31] MEDS ORDERED: HOME MED LIST COMPLETE! XX SCH (20:10)
[2021-08-31] MEDS ORDERED: busPIRone 5 MG TAB PO ONE (20:20)
[2021-08-31] MEDS ORDERED: MIRALAX *UNIT DOSE* 17GM PACKET PO ONE (21:00)
[2021-08-31] MEDS ORDERED: RAMELTEON 8 MG TAB (ROZEREM) PO ONE (23:00)
[2021-09-01] MEDS ORDERED: MAALOX 30 ML SUSP *UDC PO PRN (01:00)
[2021-09-01] MEDS ORDERED: ACETAMINOPHEN TAB 650MG DOSE (2X325MG) PO PRN (01:00)
[2021-09-01] MEDS ORDERED: MOM 30ML SUSPENSION UDC PO PRN (01:00)
[2021-09-01] MEDS ORDERED: traZODone 50 MG TAB PO PRN (01:00)
[2021-09-01 02:55] VITALS: BP 112/77
[2021-09-01] MEDS: TIOTROPIUM INHALER/CAPSULE (SPIRIVA) INH SCH (08:00)
[2021-09-01] MEDS: busPIRone 5 MG TAB PO SCH ×2 (08:30→20:30)
[2021-09-01] MEDS: ROSUVASTATIN 10 MG TAB (CRESTOR) PO SCH (08:30)
[2021-09-01] MEDS: PANTOPRAZOLE 40MG TAB (PROTONIX) PO SCH (08:30)
[2021-09-01] MEDS: CLOPIDOGREL 75 MG TAB PO SCH (08:30)
[2021-09-01] MEDS ORDERED: ANALGESIC BALM CRM 3OZ TOP SCH (09:00)
[2021-09-01] MEDS ORDERED: LOSARTAN 50MG TABLET PO SCH (09:00)
[2021-09-01] MEDS ORDERED: HYDROCHLOROthiazide 6.25MG PER 1/4TAB PO SCH (09:00)
[2021-09-01] MEDS ORDERED: ENTER DRUG NAME HERE (PATIENT'S OWN MED) PO SCH (09:00)
[2021-09-01] MEDS ORDERED: ENTER DRUG NAME HERE (PATIENT'S OWN MED) INH SCH (09:00)
[2021-09-01] MEDS ORDERED: FLUoxetine 20MG CAP PO SCH (09:00)
[2021-09-01] MEDS: BISOPROLOL FUM 2.5 MG PER 1/2TAB PO SCH (09:00)
[2021-09-01] MEDS: TAMSULOSIN 0.4 MG CAP PO SCH (14:56)
[2021-09-01] MEDS: SERTRALINE HCL 50 MG TAB PO SCH (14:56)
[2021-09-01] MEDS ORDERED: BIOFREEZE (PATIENT'S OWN MED) TOP PRN (17:15)
[2021-09-01 18:25] VITALS: BP 134/66
[2021-09-01] MEDS: ICY HOT TOP PRN (20:29)
[2021-09-01] MEDS: traZODone 100 MG TAB PO PRN (20:30)
[2021-09-02] MEDS ORDERED: UNRESOLVED PATIENT OWN MED ORDER XX SCH (00:01)
[2021-09-02 07:18] VITALS: BP 140/65
[2021-09-02] MEDS: ROSUVASTATIN 10 MG TAB (CRESTOR) PO SCH (08:38)
[2021-09-02] MEDS: BISOPROLOL FUM 2.5 MG PER 1/2TAB PO SCH (08:38)
[2021-09-02] MEDS: TIOTROPIUM INHALER/CAPSULE (SPIRIVA) INH SCH (08:38)
[2021-09-02] MEDS: CLOPIDOGREL 75 MG TAB PO SCH (08:39)
[2021-09-02] MEDS: PANTOPRAZOLE 40MG TAB (PROTONIX) PO SCH (08:39)
[2021-09-02] MEDS: TAMSULOSIN 0.4 MG CAP PO SCH (08:39)
[2021-09-02] MEDS: busPIRone 5 MG TAB PO SCH ×2 (08:39→20:33)
[2021-09-02] MEDS: SERTRALINE HCL 50 MG TAB PO SCH (08:39)
[2021-09-02] MEDS ORDERED: METHYLTESTOSTERONE PO SCH ×2 (09:00→17:02)
[2021-09-02] MEDS: METHYLTESTOSTERONE PO SCH (17:41)
[2021-09-02 18:17] VITALS: BP 128/70
[2021-09-02] MEDS: traZODone 100 MG TAB PO PRN (20:33)
[2021-09-03] MEDS: ROSUVASTATIN 10 MG TAB (CRESTOR) PO SCH (08:47)
[2021-09-03] MEDS: BISOPROLOL FUM 2.5 MG PER 1/2TAB PO SCH (08:49)
[2021-09-03] MEDS: METHYLTESTOSTERONE PO SCH (08:50)
[2021-09-03] MEDS: TAMSULOSIN 0.4 MG CAP PO SCH (08:50)
[2021-09-03] MEDS: PANTOPRAZOLE 40MG TAB (PROTONIX) PO SCH (08:51)
[2021-09-03] MEDS: TIOTROPIUM INHALER/CAPSULE (SPIRIVA) INH SCH (08:51)
[2021-09-03] MEDS: busPIRone 5 MG TAB PO SCH ×2 (08:51→20:17)
[2021-09-03] MEDS: CLOPIDOGREL 75 MG TAB PO SCH (08:51)
[2021-09-03] MEDS: SERTRALINE HCL 50 MG TAB PO SCH (08:51)
[2021-09-03 18:00] VITALS: BP 133/70
[2021-09-03] MEDS: traZODone 100 MG TAB PO PRN (20:17)
[2021-09-03] MEDS: ICY HOT TOP PRN (20:17)
[2021-09-04 06:38] VITALS: BP 148/76
[2021-09-04] MEDS ORDERED: TRAZ-257 PO (08:24)
[2021-09-04] MEDS ORDERED: FLOM0.4C39 PO (08:24)
[2021-09-04] MEDS ORDERED: SERT50TA29 PO (08:24)
[2021-09-04] MEDS: TIOTROPIUM INHALER/CAPSULE (SPIRIVA) INH SCH (08:32)
[2021-09-04] MEDS: METHYLTESTOSTERONE PO SCH (08:45)
[2021-09-04 08:46] VITALS: BP 148/76
[2021-09-04] MEDS: CLOPIDOGREL 75 MG TAB PO SCH (08:46)
[2021-09-04] MEDS: SERTRALINE HCL 50 MG TAB PO SCH (08:46)
[2021-09-04] MEDS: ROSUVASTATIN 10 MG TAB (CRESTOR) PO SCH (08:46)
[2021-09-04] MEDS: PANTOPRAZOLE 40MG TAB (PROTONIX) PO SCH (08:46)
[2021-09-04] MEDS: TAMSULOSIN 0.4 MG CAP PO SCH (08:46)
[2021-09-04] MEDS: busPIRone 5 MG TAB PO SCH (08:46)
[2021-09-04] MEDS: BISOPROLOL FUM 2.5 MG PER 1/2TAB PO SCH (08:46)
== END 2021-09-04 12:27 | disposition home or self-care (01) | DRG 880 ==
LOC: M ED 16:19 → M ED INP 09-01 00:58 → M PSY 09-01 02:54
PROVIDERS: ADMIT Psychiatry & Neurology Psychiatry; ATTEND Psychiatry & Neurology Psychiatry
DX: F41.1 Generalized anxiety disorder (principal); F32.9 Major depressive disorder, single episode, unspecified; G47.00 Insomnia, unspecified; M54.2 Cervicalgia

== ENCOUNTER 2021-10-30 20:31 | Emergency (ER) | payer MEDICARE, BC, OTHER ==
[~2021-10-30 20:31] MED LIST changes: +BUSP15TA47 PO; +FLOM0.4C39 PO; +FLUO20CA22 PO; +HALO10TA20 PO; +HALO5TAB33 PO; +OXCA300T14 PO; +SERT50TA29 PO; +TRAZ-252 PO; +TRAZ-257 PO; +ZOLO100T PO
[2021-10-30 21:09] LABS: BASO # 0.1 10^3/uL (0.0-0.2); BASO % 0.5 % (0.0-1.0); EOS # 0.1 10^3/uL (0.0-0.5); EOS % 0.9 % (0.0-3.0); HEMOGLOBIN 17.2 g/dl (13.5-17.5); LYMPH # 1.9 10^3/uL (1.5-5.0); MEAN CORPUSCULAR HEMOGLOBIN 30.9 pg (27.0-33.0); MEAN CORPUSCULAR HGB CONC 33.7 g/dl (32.0-36.5); MEAN CORPUSCULAR VOLUME 91.6 fl (80.0-96.0); MONO # 1.1 10^3/uL (0.0-0.8); MONO % 7.4 % (2.0-8.0); NEUTROPHILS # 12.2 10^3/uL (1.5-8.5); NEUTROPHILS % 78.9 % (36.0-66.0); PLATELET COUNT, AUTOMATED 309 10^3/uL (150-450); RED BLOOD COUNT 5.57 10^6/uL (4.30-6.10); WHITE BLOOD COUNT 15.5 10^3/uL (4.0-10.0)
[2021-10-30 21:40] LABS: RSV AMPLIFICATION NEGATIVE (NEGATIVE)
[2021-10-30 21:41] LABS: ACETAMINOPHEN LEVEL < 2.0 UG/ML (10.0-30.0); BLOOD UREA NITROGEN 21 MG/DL (7-18); CALCIUM LEVEL 9.4 MG/DL (8.8-10.2); CARBON DIOXIDE LEVEL 24 MEQ/L (21-32); CHLORIDE LEVEL 105 MEQ/L (98-107); GLOMERULAR FILTRATION RATE > 60.0 (>49); GLUCOSE, FASTING 135 MG/DL (70-100); POTASSIUM SERUM 4.3 MEQ/L (3.5-5.1); SALICYLATE LEVEL < 1.7 MG/DL (5.0-30.0); SODIUM LEVEL 140 MEQ/L (136-145)
[2021-10-30 21:54] LABS: AMPHETAMINES LEVEL URINE NEGATIVE (NEGATIVE); BARBITURATES URINE NEGATIVE (NEGATIVE); BENZODIAZEPINES URINE NEGATIVE (NEGATIVE); CANNABINOIDS URINE NEGATIVE (NEGATIVE); COCAINE METABOLITE URINE NEGATIVE (NEGATIVE); METHADONE URINE NEGATIVE (NEGATIVE); OPIATES URINE NEGATIVE (NEGATIVE); PHENCYCLIDINE URINE NEGATIVE (NEGATIVE)
[2021-10-30] MEDS ORDERED: TRAZ-189 PO (23:12)
[2021-10-30] MEDS ORDERED: FLOM0.4C39 PO (23:12)
[2021-10-30] MEDS ORDERED: HALO10TA20 PO (23:12)
[2021-10-30] MEDS ORDERED: OXCA300T14 PO (23:12)
[2021-10-30] MEDS ORDERED: HOME MED LIST COMPLETE! XX SCH (23:15)
[2021-10-31 03:08] LABS: APPEARANCE, URINE MANUAL CLEAR (CLEAR); BILIRUBIN, URINE MANUAL NEGATIVE (NEGATIVE); BLOOD URINE MANUAL NEGATIVE (NEGATIVE); COLOR, URINE MANUAL YELLOW (YELLOW); GLUCOSE, URINE (UA) MANUAL NEGATIVE (NEGATIVE); KETONE, URINE MANUAL NEGATIVE (NEGATIVE); LEUKOCYTE ESTERASE, URINE MAN NEGATIVE (NEGATIVE); NITRITE, URINE MANUAL NEGATIVE (NEGATIVE); PROTEIN, URINE MANUAL NEGATIVE (NEGATIVE); UROBILINOGEN, URINE MANUAL NORMAL (NORMAL)
[2021-10-31] MEDS ORDERED: QUET100T2 PO (10:55)
[2021-10-31] MEDS ORDERED: PANT40TA29 PO (10:55)
[2021-10-31] MEDS ORDERED: ZOLO100T PO (10:55)
[2021-10-31] MEDS ORDERED: HOME MED LIST COMPLETE! XX SCH (11:00)
[2021-10-31 15:34] VITALS: BP 124/66
== END 2021-10-31 15:36 ==
LOC: M ED 20:31
DX: R45.850 Homicidal ideations (principal); R45.1 Restlessness and agitation; I10 Essential (primary) hypertension; Z79.899 Other long term (current) drug therapy

== ENCOUNTER → 2022-01-14 | Outpatient (REF) | payer MEDICARE, OTHER ==
[~2022-01-14] MED LIST changes: +QUET100T2 PO; +TRAZ-189 PO
[2022-01-14 14:15] LABS: CHLORIDE LEVEL 104 MMOL/L (98-107); POTASSIUM SERUM 4.4 MMOL/L (3.5-5.1); SODIUM LEVEL 141 MMOL/L (136-145)
[2022-01-14 14:16] LABS: ALBUMIN 3.8 G/DL (3.2-5.2); CARBON DIOXIDE LEVEL 26 MMOL/L (20-31)
[2022-01-14 14:18] LABS: BILIRUBIN,TOTAL 0.3 MG/DL (0.3-1.2); TRIGLYCERIDES LEVEL 148 MG/DL (<150)
[2022-01-14 14:20] LABS: BLOOD UREA NITROGEN 14 MG/DL (9-23)
[2022-01-14 14:21] LABS: CALCIUM LEVEL 9.4 MG/DL (8.3-10.6); GLUCOSE, FASTING 91 MG/DL (74-106)
[2022-01-14 14:23] LABS: ALT/SGPT 22 U/L (7.0-40); CHOLESTEROL LEVEL 116 MG/DL (<200); CHOLESTEROL RISK RATIO 3.16 (<5); CREATININE FOR GFR 0.73 MG/DL (0.70-1.30); GLOMERULAR FILTRATION RATE > 60.0 (>49); HDL CHOLESTEROL 36.7 MG/DL (>40); LDL CHOLESTEROL 49.7 MG/DL (<100); NON-HDL-C 79 MG/DL
[2022-01-14 14:24] LABS: THYROID STIMULATING HORMONE 1.678 uIU/ML (0.55-4.78)
[2022-01-14 14:25] LABS: FREE T4 1.01 NG/DL (0.89-1.76)
== END ==
LOC: M SFHCCLAY 09:25
PROVIDERS: ATTEND Family Medicine
DX: F32.4 Major depressive disorder, single episode, in partial remission (principal); I10 Essential (primary) hypertension; E29.1 Testicular hypofunction; E78.2 Mixed hyperlipidemia

== ENCOUNTER → 2022-01-21 | Outpatient (CLI) | payer MEDICARE, BC | LOC: M CLY 15:14 | PROVIDERS: ATTEND Family Medicine | DX: M75.41 Impingement syndrome of right shoulder (principal) ==

== ENCOUNTER → 2022-02-18 | Outpatient (REF) | payer MEDICARE, OTHER | LOC: M SFHCCLAY 09:43 | PROVIDERS: ATTEND Family Medicine | DX: E29.1 Testicular hypofunction (principal) ==

== ENCOUNTER → 2022-05-09 | Outpatient (REF) | payer MEDICARE, OTHER ==
[2022-05-09 17:51] LABS: BASO # 0.1 10^3/uL (0.0-0.2); BASO % 0.9 % (0.0-1.0); EOS # 0.1 10^3/uL (0.0-0.5); EOS % 0.8 % (0.0-3.0); HEMATOCRIT 51.6 % (42.0-52.0); HEMOGLOBIN 16.5 g/dl (13.5-17.5); LYMPH # 1.1 10^3/uL (1.5-5.0); LYMPH % 12.6 % (24.0-44.0); MEAN CORPUSCULAR HEMOGLOBIN 28.6 pg (27.0-33.0); MEAN CORPUSCULAR VOLUME 89.6 fl (80.0-96.0); MONO # 0.6 10^3/uL (0.0-0.8); MONO % 6.5 % (2.0-8.0); PLATELET COUNT, AUTOMATED 309 10^3/uL (150-450); RED BLOOD COUNT 5.76 10^6/uL (4.30-6.10); WHITE BLOOD COUNT 8.8 10^3/uL (4.0-10.0)
[2022-05-09 18:15] LABS: ALBUMIN 3.3 G/DL (3.2-5.2); ALKALINE PHOSPHATASE 105 U/L (46-116); ALT/SGPT 56 U/L (7.0-40); AST/SGOT 32 U/L (<34); BILIRUBIN,TOTAL 0.3 MG/DL (0.3-1.2); BLOOD UREA NITROGEN 13 MG/DL (9-23); CALCIUM LEVEL 9.4 MG/DL (8.3-10.6); CARBON DIOXIDE LEVEL 25 MMOL/L (20-31); CHLORIDE LEVEL 107 MMOL/L (98-107); CREATININE FOR GFR 0.74 MG/DL (0.70-1.30); GLOMERULAR FILTRATION RATE > 60.0 (>49); GLUCOSE, FASTING 109 MG/DL (74-106); SODIUM LEVEL 141 MMOL/L (136-145); TOTAL PROTEIN 7.1 G/DL (5.7-8.2)
[2022-05-09 18:17] LABS: FREE T4 1.12 NG/DL (0.89-1.76); THYROID STIMULATING HORMONE 1.688 uIU/ML (0.55-4.78)
== END ==
LOC: M SFHCCLAY 11:04
PROVIDERS: ATTEND Family Medicine
DX: R25.1 Tremor, unspecified (principal); C62.90 Malignant neoplasm of unspecified testis, unspecified whether descended or undescended

== ENCOUNTER → 2022-05-23 | Outpatient (CLI) | payer MEDICARE, OTHER | LOC: M CLY 15:28 | PROVIDERS: ATTEND Family Medicine | DX: R05.9 Cough, unspecified (principal); J44.0 Chronic obstructive pulmonary disease with (acute) lower respiratory infection; J20.9 Acute bronchitis, unspecified ==

== ENCOUNTER → 2022-06-03 | Outpatient (CLI) | payer MEDICARE, BC, OTHER | LOC: M RAD 12:32 | PROVIDERS: ATTEND Family Medicine | DX: Z87.891 Personal history of nicotine dependence (principal) ==

== ENCOUNTER → 2022-06-06 | Outpatient (REF) | payer MEDICARE, BC, OTHER ==
[2022-06-06 12:23] LABS: HEMOGLOBIN A1c 5.4 % (4.0-6.0)
[2022-06-06 12:29] LABS: CHOLESTEROL RISK RATIO 5.05 (<5); HDL CHOLESTEROL 25.9 MG/DL (>40); LDL CHOLESTEROL 72.1 MG/DL (<100); NON-HDL-C 105.1 MG/DL
== END ==
LOC: M LABDRAWC 11:30
PROVIDERS: ATTEND Psychiatry & Neurology Psychiatry
DX: Z79.899 Other long term (current) drug therapy (principal)

== ENCOUNTER → 2022-06-12 | Outpatient (REF) | payer MEDICARE, OTHER ==
[2022-06-12 18:31] LABS: PERCENT SATURATION 11.2 % (19.7-50.0)
[2022-06-12 18:34] LABS: FERRITIN 168.6 NG/ML (10.5-307.3)
== END ==
LOC: M SFHCCLAY 11:02
PROVIDERS: ATTEND Family Medicine
DX: R25.9 Unspecified abnormal involuntary movements (principal)

== ENCOUNTER → 2022-08-15 | Outpatient (CLI) | payer MEDICARE, BC, OTHER | LOC: M RAD 13:41 | PROVIDERS: ATTEND Surgery Vascular Surgery | DX: I65.29 Occlusion and stenosis of unspecified carotid artery (principal); I70.90 Unspecified atherosclerosis ==

== ENCOUNTER → 2023-01-23 | Outpatient (REF) | payer MEDICARE, OTHER ==
[2023-01-23 17:42] LABS: HEMATOCRIT 54.5 % (42.0-52.0); HEMOGLOBIN 17.2 g/dl (13.5-17.5); MEAN CORPUSCULAR HEMOGLOBIN 28.3 pg (27.0-33.0); MEAN CORPUSCULAR HGB CONC 31.6 g/dl (32.0-36.5); MEAN CORPUSCULAR VOLUME 89.6 fl (80.0-96.0); PLATELET COUNT, AUTOMATED 277 10^3/uL (150-450); RED BLOOD COUNT 6.08 10^6/uL (4.30-6.10); WHITE BLOOD COUNT 10.6 10^3/uL (4.0-10.0)
[2023-01-23 18:08] LABS: ALBUMIN 3.1 G/DL (3.2-5.2); ALKALINE PHOSPHATASE 105 U/L (46-116); ALT/SGPT 32 U/L (7.0-40); AST/SGOT 42 U/L (<34); BILIRUBIN,TOTAL 0.5 MG/DL (0.3-1.2); BLOOD UREA NITROGEN 16 MG/DL (9-23); CALCIUM LEVEL 8.7 MG/DL (8.3-10.6); CARBON DIOXIDE LEVEL 26 MMOL/L (20-31); CHLORIDE LEVEL 108 MMOL/L (98-107); CHOLESTEROL LEVEL 84 MG/DL (<200); CHOLESTEROL RISK RATIO 3.45 (<5); CREATININE FOR GFR 0.83 MG/DL (0.70-1.30); GLOMERULAR FILTRATION RATE > 60.0 (>49); GLUCOSE, FASTING 105 MG/DL (74-106); HDL CHOLESTEROL 24.3 MG/DL (>40); LDL CHOLESTEROL 29.7 MG/DL (<100); NON-HDL-C 59.7 MG/DL; POTASSIUM SERUM 4.6 MMOL/L (3.5-5.1); SODIUM LEVEL 144 MMOL/L (136-145); TOTAL PROTEIN 6.7 G/DL (5.7-8.2); TRIGLYCERIDES LEVEL 150 MG/DL (<150)
[2023-01-26 18:07] LABS: TESTOSTERONE FREE (DIRECT) 8.6 pg/mL (6.6-18.1)
== END ==
LOC: M SFHCCLAY 15:04
PROVIDERS: ATTEND Family Medicine
DX: Z00.00 Encounter for general adult medical examination without abnormal findings (principal); E78.2 Mixed hyperlipidemia; E29.1 Testicular hypofunction; G24.9 Dystonia, unspecified; F32.4 Major depressive disorder, single episode, in partial remission; Z85.47 Personal history of malignant neoplasm of testis; Z12.5 Encounter for screening for malignant neoplasm of prostate
CPT/HCPCS: 80053; 80061; 84402; 84403; 85027; G0103

== ENCOUNTER → 2023-01-26 | Outpatient (REF) | payer MEDICARE, OTHER, BC ==
[2023-01-26 18:16] LABS: APPEARANCE, URINE CLEAR (CLEAR); BACTERIA, URINE AUTO NEGATIVE (NEGATIVE); BILIRUBIN, URINE AUTO NEGATIVE (NEGATIVE); BLOOD, URINE BLOOD NEGATIVE (NEGATIVE); COLOR, URINE AMBER (YELLOW); GLUCOSE, URINE (UA) AUTO NEGATIVE (NEGATIVE); KETONE, URINE AUTO TRACE mg/dL (NEGATIVE); LEUKOCYTE ESTERASE, URINE AUTO NEGATIVE (NEGATIVE); MUCUS, URINE SMALL (NEGATIVE); NITRITE, URINE AUTO NEGATIVE (NEGATIVE); PROTEIN, URINE AUTO 1+ mg/dL (NEGATIVE); RBC, URINE AUTO 0 /HPF (0-3); SPECIFIC GRAVITY URINE AUTO 1.021 (1.002-1.035); SQUAMOUS EPITHELIAL CELL UR AU 0 /HPF (0-6); UROBILINOGEN, URINE AUTO 0.2 mg/dL (0.0-2.0); WBC, URINE AUTO 0 /HPF (0-3)
== END ==
LOC: M SFHCCLAY 17:08
PROVIDERS: ATTEND Family Medicine
DX: E78.2 Mixed hyperlipidemia (principal); F32.4 Major depressive disorder, single episode, in partial remission; G24.9 Dystonia, unspecified; Z85.47 Personal history of malignant neoplasm of testis; E29.1 Testicular hypofunction

== ENCOUNTER 2023-03-22 10:56 | Emergency (ER) | payer MEDICARE, OTHER, BC ==
[~2023-03-22] VITALS: Ht 170.2 cm; Wt 62.3 kg
[2023-03-22 10:57] VITALS: TEMP 97.2
[2023-03-22] MEDS ORDERED: AMLO1TAB24 PO (12:02)
[2023-03-22] MEDS ORDERED: METH1CAP PO (12:02)
[2023-03-22] MEDS ORDERED: PROTPAK PO (12:04)
[2023-03-22] MEDS ORDERED: METO1TAB87 PO (12:04)
[2023-03-22] MEDS ORDERED: CRES10TA PO (12:04)
[2023-03-22 12:06] LABS: BASO # 0.1 10^3/uL (0.0-0.2); BASO % 0.8 % (0.0-1.0); EOS # 0.1 10^3/uL (0.0-0.5); EOS % 0.6 % (0.0-3.0); HEMATOCRIT 55.2 % (42.0-52.0); LYMPH # 1.2 10^3/uL (1.5-5.0); LYMPH % 11.8 % (24.0-44.0); MEAN CORPUSCULAR HEMOGLOBIN 28.8 pg (27.0-33.0); MEAN CORPUSCULAR HGB CONC 32.6 g/dl (32.0-36.5); MEAN CORPUSCULAR VOLUME 88.2 fl (80.0-96.0); MONO # 0.7 10^3/uL (0.0-0.8); MONO % 7.2 % (2.0-8.0); NEUTROPHILS # 8.1 10^3/uL (1.5-8.5); NEUTROPHILS % 79.3 % (36.0-66.0); PLATELET COUNT, AUTOMATED 291 10^3/uL (150-450); RED BLOOD COUNT 6.26 10^6/uL (4.30-6.10); WHITE BLOOD COUNT 10.2 10^3/uL (4.0-10.0)
[2023-03-22] MEDS ORDERED: CARB25TA9 PO (12:09)
[2023-03-22] MEDS ORDERED: FLUV50TA PO (12:09)
[2023-03-22] MEDS ORDERED: MM S100C PO (12:09)
[2023-03-22] MEDS ORDERED: FLUV100T25 PO (12:09)
[2023-03-22] MEDS ORDERED: VALI5TAB PO (12:09)
[2023-03-22] MEDS ORDERED: OLAN5ZYD PO (12:09)
[2023-03-22] MEDS ORDERED: HYDR25SU61 PR (12:09)
[2023-03-22] MEDS ORDERED: SENN-186 PO (12:09)
[2023-03-22] MEDS ORDERED: TREL1AER PO (12:09)
[2023-03-22] MEDS ORDERED: MIRT45TA68 PO (12:09)
[2023-03-22 12:15] LABS: INR 0.94; PARTIAL THROMBOPLASTIN TIME 33.6 SECONDS (24.8-34.2); PROTHROMBIN TIME 12.3 SECONDS (12.5-14.5)
[2023-03-22 12:19] LABS: ALBUMIN 3.2 G/DL (3.2-5.2); ALKALINE PHOSPHATASE 102 U/L (46-116); ALT/SGPT 28 U/L (7.0-40); AST/SGOT 46 U/L (<34); BILIRUBIN,DIRECT 0.3 MG/DL (<0.4); BILIRUBIN,TOTAL 0.5 MG/DL (0.3-1.2); BLOOD UREA NITROGEN 16 MG/DL (9-23); CALCIUM LEVEL 9.1 MG/DL (8.3-10.6); CARBON DIOXIDE LEVEL 25 MMOL/L (20-31); CHLORIDE LEVEL 107 MMOL/L (98-107); CREATININE FOR GFR 0.73 MG/DL (0.70-1.30); GLOMERULAR FILTRATION RATE > 60.0 (>49); GLUCOSE, FASTING 122 MG/DL (74-106); POTASSIUM SERUM 4.5 MMOL/L (3.5-5.1); SODIUM LEVEL 141 MMOL/L (136-145); TOTAL PROTEIN 7.4 G/DL (5.7-8.2)
[2023-03-22] MEDS: GASTROGRAFIN SOLUTION 30ML PO SCH (13:32)
[2023-03-22] MEDS ORDERED: ISOVUE-370 76% 100ML VIAL As Ordered ONE (14:23)
[2023-03-22 16:00] VITALS: BP 140/65
[2023-03-22] MEDS ORDERED: ANUS25SU PR (16:27)
[2023-03-22 16:30] VITALS: O2SAT 89
== END 2023-03-22 16:41 | disposition home or self-care (01) ==
LOC: M ED 10:56
DX: K62.5 Hemorrhage of anus and rectum (principal); K64.9 Unspecified hemorrhoids; I10 Essential (primary) hypertension; E78.5 Hyperlipidemia, unspecified; K21.9 Gastro-esophageal reflux disease without esophagitis; J44.9 Chronic obstructive pulmonary disease, unspecified; F17.210 Nicotine dependence, cigarettes, uncomplicated; F10.10 Alcohol abuse, uncomplicated; Z79.899 Other long term (current) drug therapy
CPT/HCPCS: 36415; 74177; 80048; 80076; 85025; 85610; 85730; 86850; 86900; 86901; 99284; Q9963; Q9967

== ENCOUNTER 2023-04-04 11:45 | Observation (INO) | payer MEDICARE, OTHER, BC ==
[~2023-04-04] VITALS: Ht 170.2 cm; Wt 58.9 kg
[~2023-04-04 11:45] MED LIST changes: +AMLO1TAB24 PO; +ANUS25SU PR; +CARB25TA9 PO; +CRES10TA PO; +FLUV100T25 PO; +FLUV50TA PO; +HYDR25SU61 PR; +METO1TAB87 PO; +MIRT45TA68 PO; +MM S100C PO; +OLAN5ZYD PO; +PROTPAK PO; +SENN-186 PO; +TREL1AER PO; +VALI5TAB PO
[2023-04-04] MEDS: NS 1,000 ML IV ONE (13:06)
[2023-04-04 13:14] LABS: BASO # 0.1 10^3/uL (0.0-0.2); BASO % 0.8 % (0.0-1.0); EOS % 0.3 % (0.0-3.0); HEMATOCRIT 58.9 % (42.0-52.0); HEMOGLOBIN 19.6 g/dl (13.5-17.5); INR 0.92; LYMPH % 9.4 % (24.0-44.0); MEAN CORPUSCULAR HEMOGLOBIN 28.8 pg (27.0-33.0); MEAN CORPUSCULAR HGB CONC 33.3 g/dl (32.0-36.5); MEAN CORPUSCULAR VOLUME 86.6 fl (80.0-96.0); MONO # 0.6 10^3/uL (0.0-0.8); MONO % 5.8 % (2.0-8.0); NEUTROPHILS % 83.3 % (36.0-66.0); PLATELET COUNT, AUTOMATED 305 10^3/uL (150-450); PROTHROMBIN TIME 12.1 SECONDS (12.5-14.5); WHITE BLOOD COUNT 10.8 10^3/uL (4.0-10.0)
[2023-04-04 13:15] LABS: PARTIAL THROMBOPLASTIN TIME 33.8 SECONDS (24.8-34.2)
[2023-04-04 13:29] LABS: CK-MB VALUE MASS < 1.0 NG/ML (<3.6); ETHYL ALCOHOL (ETHANOL) 0.004 % (0.000-0.010)
[2023-04-04 13:31] LABS: ALBUMIN 3.7 G/DL (3.2-5.2); ALKALINE PHOSPHATASE 110 U/L (46-116); ALT/SGPT 30 U/L (7.0-40); AST/SGOT 50 U/L (<34); BILIRUBIN,DIRECT 0.3 MG/DL (<0.4); BILIRUBIN,TOTAL 0.6 MG/DL (0.3-1.2); BLOOD UREA NITROGEN 13 MG/DL (9-23); CALCIUM LEVEL 9.2 MG/DL (8.3-10.6); CARBON DIOXIDE LEVEL 24 MMOL/L (20-31); CHLORIDE LEVEL 109 MMOL/L (98-107); CPK CREATINE PHOSPHOKINASE 308 U/L (46-171); GLOMERULAR FILTRATION RATE > 60.0 (>49); GLUCOSE, FASTING 128 MG/DL (74-106); MB/CK RELATIVE INDEX 0.32 (< OR =4); POTASSIUM SERUM 4.7 MMOL/L (3.5-5.1); SODIUM LEVEL 139 MMOL/L (136-145); TOTAL PROTEIN 7.8 G/DL (5.7-8.2)
[2023-04-04 13:46] LABS: RSV AMPLIFICATION NEGATIVE (NEGATIVE)
[2023-04-04] MEDS ORDERED: ISOVUE-370 76% 100ML VIAL As Ordered ONE (14:31)
[2023-04-04] MEDS ORDERED: MED REC IN PROGRESS XX SCH (14:45)
[2023-04-04] MEDS ORDERED: HYDR-3363 PO (15:30)
[2023-04-04] MEDS ORDERED: ANUC25SU PR (15:30)
[2023-04-04] MEDS ORDERED: MIRT-11 PO (15:30)
[2023-04-04] MEDS ORDERED: OLAN2.5T25 PO (15:30)
[2023-04-04] MEDS ORDERED: METO1TAB32 PO (15:30)
[2023-04-04] MEDS ORDERED: META28.32 PO (15:32)
[2023-04-04] MEDS ORDERED: HOME MED LIST COMPLETE! XX SCH (15:35)
[2023-04-04 16:04] LABS: C REACTIVE PROTEIN QUANTITATIV < 0.40 MG/DL (<1.0)
[2023-04-04 16:17] LABS: PROCALCITONIN <0.04 ng/ml
[2023-04-04 16:59] LABS: COLLAGEN EPINEPHRINE 121 SECONDS (74-162)
[2023-04-04 17:45] VITALS: BP 157/74; TEMP 97.4; O2SAT 91
[2023-04-04 18:09] LABS: HEMOGLOBIN 18.2 g/dl (13.5-17.5)
[2023-04-04 19:37] VITALS: BP 137/69; TEMP 97.9; O2SAT 92
[2023-04-04] MEDS: ADVAIR HFA 115/21MCG INHALER INH SCH (19:42)
[2023-04-04] MEDS: PANTOPRAZOLE 40MG VIAL IV SCH (20:21)
[2023-04-04] MEDS: ROSUVASTATIN 10 MG TAB (CRESTOR) PO SCH (20:22)
[2023-04-04] MEDS: SINEMET 25-100 MG TAB PO SCH (20:22)
[2023-04-04] MEDS: fluvoxaMINE MALEATE 50 MG TAB PO SCH (20:22)
[2023-04-04] MEDS: MIRTAZAPINE 15 MG TAB PO SCH (20:22)
[2023-04-04] MEDS: diazePAM 5MG TABLET PO SCH (20:23)
[2023-04-05] VITALS (7 sets, daily range): BP systolic 117–135; BP diastolic 59–77; TEMP 97.4–98.9; O2SAT 90–92
[2023-04-05 00:16] LABS: HEMATOCRIT 52.9 % (42.0-52.0); HEMOGLOBIN 17.3 g/dl (13.5-17.5)
[2023-04-05 05:37] LABS: BASO # 0.1 10^3/uL (0.0-0.2); BASO % 0.9 % (0.0-1.0); EOS # 0.1 10^3/uL (0.0-0.5); EOS % 0.8 % (0.0-3.0); HEMATOCRIT 52.7 % (42.0-52.0); HEMOGLOBIN 17.4 g/dl (13.5-17.5); LYMPH # 1.5 10^3/uL (1.5-5.0); LYMPH % 15.4 % (24.0-44.0); MEAN CORPUSCULAR HEMOGLOBIN 28.4 pg (27.0-33.0); MONO # 0.7 10^3/uL (0.0-0.8); NEUTROPHILS # 7.2 10^3/uL (1.5-8.5); NEUTROPHILS % 75.6 % (36.0-66.0); PLATELET COUNT, AUTOMATED 261 10^3/uL (150-450); RED BLOOD COUNT 6.13 10^6/uL (4.30-6.10); WHITE BLOOD COUNT 9.6 10^3/uL (4.0-10.0)
[2023-04-05 06:11] LABS: ALBUMIN 3.1 G/DL (3.2-5.2); ALKALINE PHOSPHATASE 95 U/L (46-116); ALT/SGPT 32 U/L (7.0-40); AST/SGOT 45 U/L (<34); BILIRUBIN,TOTAL 0.6 MG/DL (0.3-1.2); BLOOD UREA NITROGEN 12 MG/DL (9-23); CALCIUM LEVEL 8.8 MG/DL (8.3-10.6); CARBON DIOXIDE LEVEL 26 MMOL/L (20-31); CHLORIDE LEVEL 111 MMOL/L (98-107); CREATININE FOR GFR 0.78 MG/DL (0.70-1.30); GLOMERULAR FILTRATION RATE > 60.0 (>49); GLUCOSE, FASTING 75 MG/DL (74-106); MAGNESIUM LEVEL 2.1 MG/DL (1.8-2.4); POTASSIUM SERUM 4.2 MMOL/L (3.5-5.1); SODIUM LEVEL 143 MMOL/L (136-145); TOTAL PROTEIN 6.6 G/DL (5.7-8.2)
[2023-04-05] MEDS: ADVAIR HFA 115/21MCG INHALER INH SCH (08:00)
[2023-04-05] MEDS: TAMSULOSIN 0.4 MG CAP PO SCH (09:14)
[2023-04-05] MEDS: amLODIPine 5 MG TAB PO SCH (09:14)
[2023-04-05] MEDS: METOPROLOL SUCC *XL* 25MG TAB (TopROL *XL*) PO SCH (09:14)
[2023-04-05] MEDS: fluvoxaMINE MALEATE 50 MG TAB PO SCH (09:15)
[2023-04-05] MEDS: OLANZapine 2.5MG TABLET PO SCH (09:15)
[2023-04-05] MEDS ORDERED: MIRALAX *UNIT DOSE* 17GM PACKET PO PRN (10:55)
[2023-04-05 11:22] LABS: HEMATOCRIT 52.3 % (42.0-52.0); HEMOGLOBIN 17.4 g/dl (13.5-17.5)
[2023-04-05] MEDS: SENNA 8.6 MG TAB (SENOKOT) PO PRN (12:40)
[2023-04-05] MEDS: DOCUSATE SODIUM 100MG CAPSULE PO PRN (16:59)
[2023-04-05 17:18] LABS: HEMATOCRIT 50.6 % (42.0-52.0); HEMOGLOBIN 16.6 g/dl (13.5-17.5)
[2023-04-05 23:26] LABS: HEMATOCRIT 49.8 % (42.0-52.0); HEMOGLOBIN 16.1 g/dl (13.5-17.5)
[2023-04-06 03:19] VITALS: BP 121/66; TEMP 97.8; O2SAT 93
[2023-04-06 05:16] LABS: BASO % 0.4 % (0.0-1.0); EOS # 0.1 10^3/uL (0.0-0.5); EOS % 0.5 % (0.0-3.0); HEMATOCRIT 50.6 % (42.0-52.0); HEMOGLOBIN 16.3 g/dl (13.5-17.5); LYMPH # 1.1 10^3/uL (1.5-5.0); LYMPH % 11.9 % (24.0-44.0); MEAN CORPUSCULAR HEMOGLOBIN 27.8 pg (27.0-33.0); MEAN CORPUSCULAR HGB CONC 32.2 g/dl (32.0-36.5); MEAN CORPUSCULAR VOLUME 86.3 fl (80.0-96.0); MONO # 0.7 10^3/uL (0.0-0.8); NEUTROPHILS # 7.4 10^3/uL (1.5-8.5); NEUTROPHILS % 79.9 % (36.0-66.0); PLATELET COUNT, AUTOMATED 232 10^3/uL (150-450); RED BLOOD COUNT 5.86 10^6/uL (4.30-6.10); WHITE BLOOD COUNT 9.3 10^3/uL (4.0-10.0)
[2023-04-06 05:42] LABS: ALKALINE PHOSPHATASE 100 U/L (46-116); ALT/SGPT 32 U/L (7.0-40); AST/SGOT 71 U/L (<34); BILIRUBIN,TOTAL 0.5 MG/DL (0.3-1.2); BLOOD UREA NITROGEN 17 MG/DL (9-23); CALCIUM LEVEL 8.5 MG/DL (8.3-10.6); CARBON DIOXIDE LEVEL 26 MMOL/L (20-31); CHLORIDE LEVEL 109 MMOL/L (98-107); CREATININE FOR GFR 0.77 MG/DL (0.70-1.30); GLOMERULAR FILTRATION RATE > 60.0 (>49); GLUCOSE, FASTING 103 MG/DL (74-106); MAGNESIUM LEVEL 2.2 MG/DL (1.8-2.4); SODIUM LEVEL 141 MMOL/L (136-145); TOTAL PROTEIN 6.4 G/DL (5.7-8.2)
[2023-04-06 07:24] VITALS: BP 124/67; TEMP 98.1; O2SAT 94
[2023-04-06] MEDS: LACTULOSE 20GM/30ML SYRUP UDC PO ONE (09:05)
[2023-04-06] MEDS: METAMUCIL (PSYLLIUM) PACKET PO SCH (09:12)
[2023-04-06 11:39] LABS: HEMATOCRIT 50.9 % (42.0-52.0); HEMOGLOBIN 16.6 g/dl (13.5-17.5); MEAN CORPUSCULAR HEMOGLOBIN 28.1 pg (27.0-33.0); MEAN CORPUSCULAR HGB CONC 32.6 g/dl (32.0-36.5); MEAN CORPUSCULAR VOLUME 86.3 fl (80.0-96.0); PLATELET COUNT, AUTOMATED 215 10^3/uL (150-450); WHITE BLOOD COUNT 9.1 10^3/uL (4.0-10.0)
[2023-04-06 11:58] VITALS: BP 146/68; TEMP 99.1; O2SAT 90
[2023-04-06] MEDS: GOLYTELY SOLN 4000 ML BTL PO ONE (14:08)
[2023-04-06 16:00] VITALS: BP 128/66; TEMP 98.3; O2SAT 89
[2023-04-06 17:47] LABS: HEMATOCRIT 51.1 % (42.0-52.0); HEMOGLOBIN 16.6 g/dl (13.5-17.5)
[2023-04-06 19:10] VITALS: BP 142/70; TEMP 97.4; O2SAT 91
[2023-04-06 23:13] VITALS: BP 116/64; TEMP 97.9; O2SAT 94
[2023-04-07] VITALS (7 sets, daily range): BP systolic 112–140; BP diastolic 57–87; TEMP 97.7–99.2; O2SAT 89–93
[2023-04-07 00:15] LABS: HEMATOCRIT 47.9 % (42.0-52.0); HEMOGLOBIN 15.5 g/dl (13.5-17.5)
[2023-04-07 05:12] LABS: BASO # 0.1 10^3/uL (0.0-0.2); BASO % 0.5 % (0.0-1.0); EOS # 0.1 10^3/uL (0.0-0.5); EOS % 0.7 % (0.0-3.0); HEMATOCRIT 47.7 % (42.0-52.0); HEMOGLOBIN 15.8 g/dl (13.5-17.5); LYMPH # 1.2 10^3/uL (1.5-5.0); LYMPH % 12.8 % (24.0-44.0); MEAN CORPUSCULAR HEMOGLOBIN 28.7 pg (27.0-33.0); MEAN CORPUSCULAR HGB CONC 33.1 g/dl (32.0-36.5); MEAN CORPUSCULAR VOLUME 86.6 fl (80.0-96.0); MONO # 0.6 10^3/uL (0.0-0.8); MONO % 6.8 % (2.0-8.0); NEUTROPHILS # 7.4 10^3/uL (1.5-8.5); NEUTROPHILS % 78.9 % (36.0-66.0); PLATELET COUNT, AUTOMATED 207 10^3/uL (150-450); RED BLOOD COUNT 5.51 10^6/uL (4.30-6.10); WHITE BLOOD COUNT 9.4 10^3/uL (4.0-10.0)
[2023-04-07 05:34] LABS: ALKALINE PHOSPHATASE 104 U/L (46-116); ALT/SGPT 78 U/L (7.0-40); AST/SGOT 114 U/L (<34); BILIRUBIN,TOTAL 0.6 MG/DL (0.3-1.2); BLOOD UREA NITROGEN 10 MG/DL (9-23); CALCIUM LEVEL 8.1 MG/DL (8.3-10.6); CARBON DIOXIDE LEVEL 27 MMOL/L (20-31); CHLORIDE LEVEL 112 MMOL/L (98-107); CREATININE FOR GFR 0.73 MG/DL (0.70-1.30); GLOMERULAR FILTRATION RATE > 60.0 (>49); GLUCOSE, FASTING 96 MG/DL (74-106); MAGNESIUM LEVEL 1.7 MG/DL (1.8-2.4); POTASSIUM SERUM 3.8 MMOL/L (3.5-5.1); SODIUM LEVEL 146 MMOL/L (136-145); TOTAL PROTEIN 6.2 G/DL (5.7-8.2)
[2023-04-07] MEDS: MAG SULF 1GM/100ML (MAG RUN) 1 GM in IV 1 EA IV ONE (08:17)
[2023-04-07] MEDS ORDERED: LIDOCAINE 2% 100MG/5ML SDV (FOR ANES.) As Ordered ONE (14:32)
[2023-04-07] MEDS ORDERED: propofoL 200 MG/20 ML VIAL As Ordered ONE (14:35)
[2023-04-07] MEDS ORDERED: ePHEDrine SULFATE 25 MG/5 ML(5MG/ML) SYRINGE As Ordered ONE (15:00)
[2023-04-08 03:17] VITALS: BP 122/65; TEMP 97.7; O2SAT 90
[2023-04-08 06:32] LABS: BASO % 0.4 % (0.0-1.0); EOS # 0.1 10^3/uL (0.0-0.5); EOS % 0.8 % (0.0-3.0); HEMATOCRIT 48.5 % (42.0-52.0); HEMOGLOBIN 15.6 g/dl (13.5-17.5); LYMPH # 1.2 10^3/uL (1.5-5.0); LYMPH % 13.1 % (24.0-44.0); MEAN CORPUSCULAR HEMOGLOBIN 28.2 pg (27.0-33.0); MEAN CORPUSCULAR HGB CONC 32.2 g/dl (32.0-36.5); MEAN CORPUSCULAR VOLUME 87.5 fl (80.0-96.0); MONO # 0.7 10^3/uL (0.0-0.8); MONO % 8.1 % (2.0-8.0); NEUTROPHILS # 7.1 10^3/uL (1.5-8.5); NEUTROPHILS % 77.4 % (36.0-66.0); PLATELET COUNT, AUTOMATED 198 10^3/uL (150-450); RED BLOOD COUNT 5.54 10^6/uL (4.30-6.10); WHITE BLOOD COUNT 9.2 10^3/uL (4.0-10.0)
[2023-04-08] MEDS ORDERED: PHEN26CR PR (06:40)
[2023-04-08] MEDS ORDERED: MIRA3350 PO (06:40)
[2023-04-08] MEDS ORDERED: CLOP75TA2 PO (06:40)
[2023-04-08 07:01] LABS: ALBUMIN 2.9 G/DL (3.2-5.2); ALKALINE PHOSPHATASE 110 U/L (46-116); ALT/SGPT 104 U/L (7.0-40); AST/SGOT 126 U/L (<34); BILIRUBIN,TOTAL 0.7 MG/DL (0.3-1.2); BLOOD UREA NITROGEN 10 MG/DL (9-23); CALCIUM LEVEL 8.3 MG/DL (8.3-10.6); CARBON DIOXIDE LEVEL 25 MMOL/L (20-31); CHLORIDE LEVEL 111 MMOL/L (98-107); CREATININE FOR GFR 0.72 MG/DL (0.70-1.30); GLOMERULAR FILTRATION RATE > 60.0 (>49); GLUCOSE, FASTING 84 MG/DL (74-106); MAGNESIUM LEVEL 1.9 MG/DL (1.8-2.4); SODIUM LEVEL 143 MMOL/L (136-145); TOTAL PROTEIN 6.1 G/DL (5.7-8.2)
[2023-04-08 07:40] VITALS: BP 134/67; TEMP 97.6; O2SAT 90
[2023-04-08 09:22] VITALS: BP 125/64
== END 2023-04-08 10:06 | disposition home or self-care (01) ==
LOC: M ED 11:45 → M ED INP 16:02 → INTOOBSV 16:02 → M PCU 17:40
PROVIDERS: ADMIT Internal Medicine; ATTEND Internal Medicine
DX: K62.5 Hemorrhage of anus and rectum (principal); K64.8 Other hemorrhoids; K63.89 Other specified diseases of intestine; K59.00 Constipation, unspecified; I73.9 Peripheral vascular disease, unspecified; I10 Essential (primary) hypertension; E78.5 Hyperlipidemia, unspecified; J44.9 Chronic obstructive pulmonary disease, unspecified; F17.210 Nicotine dependence, cigarettes, uncomplicated; N40.0 Benign prostatic hyperplasia without lower urinary tract symptoms; D75.1 Secondary polycythemia; F41.9 Anxiety disorder, unspecified; G25.0 Essential tremor; G25.81 Restless legs syndrome; G21.11 Neuroleptic induced parkinsonism; Z95.828 Presence of other vascular implants and grafts; Z79.899 Other long term (current) drug therapy; Z20.822 Contact with and (suspected) exposure to COVID-19; Z85.47 Personal history of malignant neoplasm of testis; Z90.79 Acquired absence of other genital organ(s); Z82.49 Family history of ischemic heart disease and other diseases of the circulatory system; D12.7 Benign neoplasm of rectosigmoid junction; D12.2 Benign neoplasm of ascending colon; D12.0 Benign neoplasm of cecum
CPT/HCPCS: 36415; 45380; 45385; 74174; 80048; 80053; 80076; 82077; 82550; 82553; 83605; 83735; 84145; 84484; 85014; 85018; 85025; 85027; 85576; 85610; 85730; 86140; 86850; 86900; 86901; 87631; 88305; 93005; 93041; 94640; 94664; 96361; 96365; 96375; 96376; 99285; C9113; G0378; J3475; Q9967

== ENCOUNTER → 2023-08-10 | Outpatient (REF) | payer MEDICARE, BC ==
[~2023-08-10] MED LIST changes: +ANUC25SU PR; +CARB1TAB97 PO; +DOXY100T PO; +FLUO-365 PO; -FLUO20CA22 PO; +GABA-282 PO; +HYDR-3363 PO; +META28.32 PO; +METO1TAB32 PO; +MIRA3350 PO; +MIRT-11 PO; +OLAN2.5T25 PO; +PHEN26CR PR; -ROSU10TA6 PO; +ROSU10TA61 PO
== END ==
LOC: M SFHCCLAY 15:19
PROVIDERS: ATTEND Physician Assistant
DX: R04.2 Hemoptysis (principal)

== ENCOUNTER → 2023-08-10 | Outpatient (CLI) | payer MEDICARE, OTHER, BC ==
[~2023-08-10] MED LIST changes: +MECL-209 PO
== END ==
LOC: M CLY 14:45
PROVIDERS: ATTEND Physician Assistant
DX: J98.11 Atelectasis (principal); R04.2 Hemoptysis

== ENCOUNTER → 2023-08-12 | Outpatient (REF) | payer MEDICARE, BC ==
[~2023-08-12] MED LIST changes: -MECL-209 PO
[2023-08-12 19:26] LABS: BASO # 0.1 10^3/uL (0.0-0.2); BASO % 0.8 % (0.0-1.0); EOS # 0.2 10^3/uL (0.0-0.5); EOS % 1.6 % (0.0-3.0); HEMATOCRIT 55.9 % (42.0-52.0); HEMOGLOBIN 17.9 g/dl (13.5-17.5); LYMPH # 1.4 10^3/uL (1.5-5.0); LYMPH % 13.2 % (24.0-44.0); MEAN CORPUSCULAR HEMOGLOBIN 27.5 pg (27.0-33.0); MEAN CORPUSCULAR VOLUME 85.9 fl (80.0-96.0); MONO # 0.6 10^3/uL (0.0-0.8); NEUTROPHILS # 8.3 10^3/uL (1.5-8.5); NEUTROPHILS % 77.9 % (36.0-66.0); PLATELET COUNT, AUTOMATED 273 10^3/uL (150-450); RED BLOOD COUNT 6.51 10^6/uL (4.30-6.10); WHITE BLOOD COUNT 10.6 10^3/uL (4.0-10.0)
[2023-08-12 19:48] LABS: ALBUMIN 3.3 G/DL (3.2-5.2); ALKALINE PHOSPHATASE 94 U/L (46-116); ALT/SGPT 55 U/L (7.0-40); AST/SGOT 43 U/L (<34); BILIRUBIN,TOTAL 0.7 MG/DL (0.3-1.2); BLOOD UREA NITROGEN 14 MG/DL (9-23); CARBON DIOXIDE LEVEL 26 MMOL/L (20-31); CHLORIDE LEVEL 106 MMOL/L (98-107); CREATININE FOR GFR 0.77 MG/DL (0.70-1.30); GLOMERULAR FILTRATION RATE > 60.0 (>49); GLUCOSE, FASTING 120 MG/DL (74-106); POTASSIUM SERUM 4.5 MMOL/L (3.5-5.1); SODIUM LEVEL 138 MMOL/L (136-145); TOTAL PROTEIN 7.1 G/DL (5.7-8.2)
== END ==
LOC: M SFHCCLAY 09:47
PROVIDERS: ATTEND Physician Assistant
DX: R04.2 Hemoptysis (principal)

== ENCOUNTER 2023-08-13 12:21 | Inpatient (IN) | payer MEDICARE, BC ==
[~2023-08-13] VITALS: Ht 170.2 cm; Wt 58.5 kg
[~2023-08-13 12:21] MED LIST changes: -CARB1TAB97 PO; -DOXY100T PO; -GABA-282 PO
[2023-08-13 13:22] LABS: BASO # 0.1 10^3/uL (0.0-0.2); BASO % 0.9 % (0.0-1.0); EOS # 0.1 10^3/uL (0.0-0.5); EOS % 1.1 % (0.0-3.0); HEMATOCRIT 56.2 % (42.0-52.0); HEMOGLOBIN 18.4 g/dl (13.5-17.5); LYMPH # 1.1 10^3/uL (1.5-5.0); LYMPH % 11.1 % (24.0-44.0); MEAN CORPUSCULAR HEMOGLOBIN 27.8 pg (27.0-33.0); MEAN CORPUSCULAR HGB CONC 32.7 g/dl (32.0-36.5); MEAN CORPUSCULAR VOLUME 84.9 fl (80.0-96.0); MONO # 0.7 10^3/uL (0.0-0.8); MONO % 6.6 % (2.0-8.0); NEUTROPHILS # 8.2 10^3/uL (1.5-8.5); NEUTROPHILS % 80.1 % (36.0-66.0); PLATELET COUNT, AUTOMATED 266 10^3/uL (150-450); RED BLOOD COUNT 6.62 10^6/uL (4.30-6.10); WHITE BLOOD COUNT 10.3 10^3/uL (4.0-10.0)
[2023-08-13] MEDS ORDERED: ISOVUE-370 76% 100ML VIAL As Ordered ONE (13:37)
[2023-08-13 13:41] LABS: INR 0.92; PARTIAL THROMBOPLASTIN TIME 32.5 SECONDS (24.8-34.2); PROTHROMBIN TIME 12.1 SECONDS (12.5-14.5)
[2023-08-13 13:52] LABS: ALBUMIN 3.4 G/DL (3.2-5.2); BILIRUBIN,DIRECT 0.3 MG/DL (<0.4); BILIRUBIN,TOTAL 0.7 MG/DL (0.3-1.2); TOTAL PROTEIN 7.2 G/DL (5.7-8.2)
[2023-08-13] MEDS ORDERED: CLOP75TA2 PO (15:26)
[2023-08-13] MEDS ORDERED: DOXY100T PO (15:26)
[2023-08-13] MEDS ORDERED: CARB1TAB97 PO (15:26)
[2023-08-13] MEDS ORDERED: GABA-282 PO (15:26)
[2023-08-13] MEDS ORDERED: FLUV100T25 PO (15:26)
[2023-08-13] MEDS ORDERED: HOME MED LIST COMPLETE! XX SCH (15:30)
[2023-08-13] MEDS ORDERED: ACETAMINOPHEN TAB 650MG DOSE (2X325MG) PO PRN (17:00)
[2023-08-13] MEDS ORDERED: ANUSOL HC 25MG SUPP PR PRN (17:05)
[2023-08-13 17:42] LABS: PROCALCITONIN 0.04 ng/ml
[2023-08-13] MEDS: ADVAIR HFA 230/21MCG INHALER INH SCH (20:21)
[2023-08-13] MEDS ORDERED: ENTER DRUG NAME HERE (PATIENT'S OWN MED) PO SCH (21:00)
[2023-08-13] MEDS: SENNA 8.6 MG TAB (SENOKOT) PO SCH (21:20)
[2023-08-13] MEDS: DOCUSATE SODIUM 100MG CAPSULE PO SCH (21:21)
[2023-08-13] MEDS: diazePAM 5MG TABLET PO SCH (21:26)
[2023-08-13] MEDS: fluvoxaMINE MALEATE 50 MG TAB PO SCH (21:26)
[2023-08-13] MEDS: PANTOPRAZOLE 40MG TAB (PROTONIX) PO SCH (21:26)
[2023-08-13] MEDS: ROSUVASTATIN 10 MG TAB (CRESTOR) PO SCH (21:27)
[2023-08-13] MEDS: GABAPENTIN 300 MG CAP PO SCH (21:27)
[2023-08-13] MEDS: SINEMET**CR** 25/100 TABCR PO SCH (22:02)
[2023-08-13] MEDS: SINEMET 25-100 MG TAB PO SCH (22:02)
[2023-08-13 23:50] VITALS: BP 125/84; TEMP 97.8; O2SAT 93
[2023-08-14] VITALS (8 sets, daily range): BP systolic 116–129; BP diastolic 65–71; TEMP 97.5–98.8; O2SAT 89–97
[2023-08-14 05:54] LABS: HEMATOCRIT 51.8 % (42.0-52.0); MEAN CORPUSCULAR HEMOGLOBIN 27.9 pg (27.0-33.0); MEAN CORPUSCULAR HGB CONC 32.8 g/dl (32.0-36.5); MEAN CORPUSCULAR VOLUME 85.1 fl (80.0-96.0); PLATELET COUNT, AUTOMATED 248 10^3/uL (150-450); RED BLOOD COUNT 6.09 10^6/uL (4.30-6.10); WHITE BLOOD COUNT 9.9 10^3/uL (4.0-10.0)
[2023-08-14 06:22] LABS: ALKALINE PHOSPHATASE 87 U/L (46-116); ALT/SGPT 19 U/L (7.0-40); AST/SGOT 39 U/L (<34); BILIRUBIN,TOTAL 0.7 MG/DL (0.3-1.2); BLOOD UREA NITROGEN 13 MG/DL (9-23); CALCIUM LEVEL 8.5 MG/DL (8.3-10.6); CARBON DIOXIDE LEVEL 28 MMOL/L (20-31); CHLORIDE LEVEL 109 MMOL/L (98-107); CREATININE FOR GFR 0.76 MG/DL (0.70-1.30); GLOMERULAR FILTRATION RATE > 60.0 (>49); GLUCOSE, FASTING 95 MG/DL (74-106); POTASSIUM SERUM 4.4 MMOL/L (3.5-5.1); SODIUM LEVEL 142 MMOL/L (136-145); TOTAL PROTEIN 6.6 G/DL (5.7-8.2)
[2023-08-14] MEDS: TIOTROPIUM INHALER/CAPSULE (SPIRIVA) INH SCH (06:59)
[2023-08-14] MEDS: METOPROLOL SUCC *XL* 25MG TAB (TopROL *XL*) PO SCH (08:34)
[2023-08-14] MEDS: amLODIPine 5 MG TAB PO SCH (08:34)
[2023-08-14] MEDS: NICOTINE 21MG/24HR 1 EA TRANSDERMAL TD SCH (08:35)
[2023-08-14] MEDS: fluvoxaMINE MALEATE 50 MG TAB PO SCH (11:12)
[2023-08-15 03:50] VITALS: BP 127/72; TEMP 97.5; O2SAT 90
[2023-08-15 05:42] LABS: HEMATOCRIT 51.4 % (42.0-52.0); HEMOGLOBIN 16.7 g/dl (13.5-17.5); MEAN CORPUSCULAR HEMOGLOBIN 27.6 pg (27.0-33.0); MEAN CORPUSCULAR HGB CONC 32.5 g/dl (32.0-36.5); MEAN CORPUSCULAR VOLUME 84.8 fl (80.0-96.0); PLATELET COUNT, AUTOMATED 241 10^3/uL (150-450); RED BLOOD COUNT 6.06 10^6/uL (4.30-6.10); WHITE BLOOD COUNT 9.5 10^3/uL (4.0-10.0)
[2023-08-15 06:10] LABS: ALKALINE PHOSPHATASE 96 U/L (46-116); ALT/SGPT 26 U/L (7.0-40); AST/SGOT 67 U/L (<34); BILIRUBIN,TOTAL 0.6 MG/DL (0.3-1.2); BLOOD UREA NITROGEN 16 MG/DL (9-23); CALCIUM LEVEL 8.7 MG/DL (8.3-10.6); CARBON DIOXIDE LEVEL 26 MMOL/L (20-31); CHLORIDE LEVEL 109 MMOL/L (98-107); CREATININE FOR GFR 0.71 MG/DL (0.70-1.30); GLOMERULAR FILTRATION RATE > 60.0 (>49); GLUCOSE, FASTING 99 MG/DL (74-106); POTASSIUM SERUM 4.2 MMOL/L (3.5-5.1); SODIUM LEVEL 140 MMOL/L (136-145); TOTAL PROTEIN 6.6 G/DL (5.7-8.2)
[2023-08-15 12:22] VITALS: BP 138/64; TEMP 97.7; O2SAT 92
[2023-08-15 20:20] VITALS: BP 125/57; TEMP 97.7; O2SAT 96
[2023-08-16] VITALS (7 sets, daily range): BP systolic 126–128; BP diastolic 61–63; TEMP 97.5–97.7; O2SAT 86–91
[2023-08-16 05:38] LABS: HEMATOCRIT 51.1 % (42.0-52.0); HEMOGLOBIN 16.6 g/dl (13.5-17.5); MEAN CORPUSCULAR HEMOGLOBIN 27.7 pg (27.0-33.0); MEAN CORPUSCULAR HGB CONC 32.5 g/dl (32.0-36.5); MEAN CORPUSCULAR VOLUME 85.3 fl (80.0-96.0); PLATELET COUNT, AUTOMATED 234 10^3/uL (150-450); RED BLOOD COUNT 5.99 10^6/uL (4.30-6.10); WHITE BLOOD COUNT 9.6 10^3/uL (4.0-10.0)
[2023-08-16 06:03] LABS: ALBUMIN 3.1 G/DL (3.2-5.2); ALKALINE PHOSPHATASE 107 U/L (46-116); ALT/SGPT 35 U/L (7.0-40); AST/SGOT 139 U/L (<34); BILIRUBIN,TOTAL 0.7 MG/DL (0.3-1.2); BLOOD UREA NITROGEN 18 MG/DL (9-23); CALCIUM LEVEL 8.8 MG/DL (8.3-10.6); CARBON DIOXIDE LEVEL 26 MMOL/L (20-31); CHLORIDE LEVEL 113 MMOL/L (98-107); CREATININE FOR GFR 0.72 MG/DL (0.70-1.30); GLOMERULAR FILTRATION RATE > 60.0 (>49); GLUCOSE, FASTING 109 MG/DL (74-106); POTASSIUM SERUM 4.5 MMOL/L (3.5-5.1); SODIUM LEVEL 143 MMOL/L (136-145); TOTAL PROTEIN 6.7 G/DL (5.7-8.2)
[2023-08-17] VITALS (7 sets, daily range): BP systolic 114–119; BP diastolic 58–62; TEMP 97.5–98.1; O2SAT 87–93
[2023-08-17 06:14] LABS: HEMATOCRIT 52.2 % (42.0-52.0); HEMOGLOBIN 16.8 g/dl (13.5-17.5); MEAN CORPUSCULAR HEMOGLOBIN 27.6 pg (27.0-33.0); MEAN CORPUSCULAR HGB CONC 32.2 g/dl (32.0-36.5); MEAN CORPUSCULAR VOLUME 85.9 fl (80.0-96.0); PLATELET COUNT, AUTOMATED 220 10^3/uL (150-450); RED BLOOD COUNT 6.08 10^6/uL (4.30-6.10)
[2023-08-17 06:45] LABS: ALBUMIN 3.2 G/DL (3.2-5.2); ALKALINE PHOSPHATASE 112 U/L (46-116); ALT/SGPT 66 U/L (7.0-40); AST/SGOT 155 U/L (<34); BILIRUBIN,TOTAL 0.7 MG/DL (0.3-1.2); BLOOD UREA NITROGEN 19 MG/DL (9-23); CALCIUM LEVEL 8.6 MG/DL (8.3-10.6); CARBON DIOXIDE LEVEL 26 MMOL/L (20-31); CHLORIDE LEVEL 111 MMOL/L (98-107); CREATININE FOR GFR 0.73 MG/DL (0.70-1.30); GLOMERULAR FILTRATION RATE > 60.0 (>49); GLUCOSE, FASTING 89 MG/DL (74-106); POTASSIUM SERUM 4.4 MMOL/L (3.5-5.1); SODIUM LEVEL 143 MMOL/L (136-145); TOTAL PROTEIN 6.6 G/DL (5.7-8.2)
[2023-08-17] MEDS ORDERED: LIDOCAINE 2% 100MG/5ML SDV (FOR ANES.) As Ordered ONE (10:40)
[2023-08-17] MEDS ORDERED: propofoL 200 MG/20 ML VIAL As Ordered ONE (10:40)
[2023-08-17] MEDS ORDERED: ROCURONIUM BROMIDE 50MG/5ML VIAL As Ordered ONE (10:40)
[2023-08-17] MEDS ORDERED: ONDANSETRON 4MG 2ML VIAL As Ordered ONE (10:40)
[2023-08-17] MEDS ORDERED: fentaNYL 100 MCG/2 ML INJECTION As Ordered ONE (10:41)
[2023-08-17] MEDS ORDERED: MIDAZOLAM INJ 2MG/2ML VIAL As Ordered ONE (10:41)
[2023-08-17] MEDS ORDERED: SUGAMMADEX SODIUM 500 MG/5 ML VIAL (BRIDION) As Ordered ONE (10:47)
[2023-08-17] MEDS ORDERED: oxyCODONE 5MG TAB PO PRN (11:45)
[2023-08-17] MEDS ORDERED: HYDROMORPHONE HCL 0.5 MG/ 0.5 ML SYRINGE IV PRN (11:45)
[2023-08-17] MEDS: LR 1,000 ML IV SCH (11:45)
[2023-08-17] MEDS ORDERED: fentaNYL 100 MCG/2 ML INJECTION IV PRN (11:45)
[2023-08-17] MEDS ORDERED: ONDANSETRON 4MG 2ML VIAL IV PRN (11:45)
[2023-08-17] MEDS: EPINEPHrine 1MG/10ML SYRINGE 1.5IN As Ordered ONE (11:58)
[2023-08-17] MEDS: THROMBIN 5,000 UNITS VIAL As Ordered ONE (11:58)
[2023-08-18 04:00] VITALS: BP 130/58; TEMP 97.5; O2SAT 92
[2023-08-18 08:02] LABS: HEMATOCRIT 49.3 % (42.0-52.0); HEMOGLOBIN 15.8 g/dl (13.5-17.5); MEAN CORPUSCULAR HEMOGLOBIN 27.6 pg (27.0-33.0); MEAN CORPUSCULAR VOLUME 86.2 fl (80.0-96.0); PLATELET COUNT, AUTOMATED 222 10^3/uL (150-450); RED BLOOD COUNT 5.72 10^6/uL (4.30-6.10); WHITE BLOOD COUNT 15.4 10^3/uL (4.0-10.0)
[2023-08-18 08:31] LABS: ALBUMIN 3.1 G/DL (3.2-5.2); ALKALINE PHOSPHATASE 111 U/L (46-116); ALT/SGPT 75 U/L (7.0-40); AST/SGOT 113 U/L (<34); BILIRUBIN,TOTAL 0.5 MG/DL (0.3-1.2); BLOOD UREA NITROGEN 20 MG/DL (9-23); CALCIUM LEVEL 8.6 MG/DL (8.3-10.6); CARBON DIOXIDE LEVEL 26 MMOL/L (20-31); CHLORIDE LEVEL 111 MMOL/L (98-107); CREATININE FOR GFR 0.81 MG/DL (0.70-1.30); GLOMERULAR FILTRATION RATE > 60.0 (>49); GLUCOSE, FASTING 128 MG/DL (74-106); POTASSIUM SERUM 4.1 MMOL/L (3.5-5.1); SODIUM LEVEL 145 MMOL/L (136-145); TOTAL PROTEIN 6.3 G/DL (5.7-8.2)
[2023-08-18 08:36] VITALS: BP 119/56
[2023-08-18 10:29] LABS: PROCALCITONIN 0.07 ng/ml
[2023-08-18 10:49] VITALS: O2SAT 93
[2023-08-18 12:00] VITALS: BP 127/59; TEMP 97.7; O2SAT 89
== END 2023-08-18 13:49 | disposition home health service (06) | DRG 813 ==
LOC: M ED 12:21 → M ED INP 16:56 → M MSPAV 23:45 → OBSVTOIN 08-15 17:18
PROVIDERS: ADMIT Internal Medicine; ATTEND Internal Medicine
PROC: 0BJ08ZZ Inspection of Tracheobronchial Tree, Via Natural or Artificial Opening Endoscopic (ICD-10-PCS; principal; 2023-08-17 08:00)
DX: D68.32 Hemorrhagic disorder due to extrinsic circulating anticoagulants (principal); R04.2 Hemoptysis; I73.9 Peripheral vascular disease, unspecified; I10 Essential (primary) hypertension; J44.9 Chronic obstructive pulmonary disease, unspecified; N40.0 Benign prostatic hyperplasia without lower urinary tract symptoms; F32.A Depression, unspecified; F41.9 Anxiety disorder, unspecified; M50.10 Cervical disc disorder with radiculopathy, unspecified cervical region; Z95.828 Presence of other vascular implants and grafts; Z79.02 Long term (current) use of antithrombotics/antiplatelets; Z79.2 Long term (current) use of antibiotics; Z79.899 Other long term (current) drug therapy; Z85.47 Personal history of malignant neoplasm of testis; F17.200 Nicotine dependence, unspecified, uncomplicated; Z71.6 Tobacco abuse counseling

== ENCOUNTER 2023-08-22 11:18 | Emergency (ER) | payer MEDICARE, BC ==
[~2023-08-22] VITALS: Ht 170.2 cm; Wt 64.5 kg
[~2023-08-22 11:18] MED LIST changes: +CARB1TAB97 PO; +DOXY100T PO; +GABA-282 PO
[2023-08-22 12:10] LABS: VENOUS BASE EXCESS 0.6 (-2.0-2.0); VENOUS O2 SATURATION 91.5 % (60.0-80.0); VENOUS PARTIAL PRESSURE CO2 39.7 mmHg (38.0-50.0); VENOUS PH 7.417 UNITS (7.330-7.430); VENOUS STANDARD HCO3 24.8 MMOL/L; VENOUS TOTAL CO2 26.2 MMOL/L (24.0-28.0)
[2023-08-22 12:21] LABS: BASO # 0.1 10^3/uL (0.0-0.2); EOS # 0.2 10^3/uL (0.0-0.5); HEMOGLOBIN 17.3 g/dl (13.5-17.5); LYMPH # 1.4 10^3/uL (1.5-5.0); LYMPH % 13.6 % (24.0-44.0); MEAN CORPUSCULAR HEMOGLOBIN 27.5 pg (27.0-33.0); MONO # 0.8 10^3/uL (0.0-0.8); MONO % 7.1 % (2.0-8.0); NEUTROPHILS % 75.9 % (36.0-66.0); PLATELET COUNT, AUTOMATED 206 10^3/uL (150-450); RED BLOOD COUNT 6.28 10^6/uL (4.30-6.10); WHITE BLOOD COUNT 10.6 10^3/uL (4.0-10.0)
[2023-08-22 12:22] LABS: BLOOD UREA NITROGEN 16 MG/DL (9-23); CALCIUM LEVEL 8.9 MG/DL (8.3-10.6); CARBON DIOXIDE LEVEL 28 MMOL/L (20-31); CHLORIDE LEVEL 105 MMOL/L (98-107); CREATININE FOR GFR 0.74 MG/DL (0.70-1.30); GLOMERULAR FILTRATION RATE > 60.0 (>49); GLUCOSE, FASTING 99 MG/DL (74-106); POTASSIUM SERUM 4.7 MMOL/L (3.5-5.1); SODIUM LEVEL 137 MMOL/L (136-145)
[2023-08-22] MEDS: MECLIZINE 25 MG TABLET PO ONE (13:46)
[2023-08-22] MEDS: LORazepam 2 MG/ML 1ML VIAL IV STA (13:46)
[2023-08-22 16:00] VITALS: BP 126/78; O2SAT 92
[2023-08-22] MEDS ORDERED: MECL-209 PO (16:10)
[2023-08-22 16:17] VITALS: TEMP 98.2
== END 2023-08-22 16:18 | disposition home or self-care (01) ==
LOC: M ED 11:18
DX: H81.4 Vertigo of central origin (principal); J44.9 Chronic obstructive pulmonary disease, unspecified; E78.5 Hyperlipidemia, unspecified; I10 Essential (primary) hypertension; F41.9 Anxiety disorder, unspecified; Z87.891 Personal history of nicotine dependence; Z79.899 Other long term (current) drug therapy
CPT/HCPCS: 70450; 70544; 70547; 70551; 80048; 82803; 85025; 93005; 96374; 99284; J2060

== ENCOUNTER → 2023-08-25 | Outpatient (REF) | payer MEDICARE, BC ==
[~2023-08-25] MED LIST changes: +MECL-209 PO
[2023-08-25 19:13] LABS: ALBUMIN 3.2 G/DL (3.2-5.2); BILIRUBIN,DIRECT 0.2 MG/DL (<0.4); BILIRUBIN,TOTAL 0.5 MG/DL (0.3-1.2); TOTAL PROTEIN 6.6 G/DL (5.7-8.2)
== END ==
LOC: M SFHCCLAY 14:58
PROVIDERS: ATTEND Family Medicine
DX: R79.89 Other specified abnormal findings of blood chemistry (principal)

== ENCOUNTER → 2023-09-17 | Outpatient (CLI) | payer MEDICARE, BC | LOC: M RAD 10:55 | PROVIDERS: ATTEND Surgery Vascular Surgery | DX: I65.23 Occlusion and stenosis of bilateral carotid arteries (principal); I70.90 Unspecified atherosclerosis ==

== ENCOUNTER → 2023-09-21 | Outpatient (CLI) | payer MEDICARE, BC | LOC: M RAD 14:58 | PROVIDERS: ATTEND Internal Medicine Pulmonary Disease | DX: J43.1 Panlobular emphysema (principal) ==

== ENCOUNTER 2023-10-14 13:20 | Emergency (ER) | payer MEDICARE, BC ==
[~2023-10-14] VITALS: Ht 170.2 cm; Wt 70.6 kg
[2023-10-14 14:32] LABS: HEMOGLOBIN 16.8 g/dl (13.5-17.5); MEAN CORPUSCULAR HGB CONC 32.3 g/dl (32.0-36.5); MEAN CORPUSCULAR VOLUME 86.5 fl (80.0-96.0); PLATELET COUNT, AUTOMATED 262 10^3/uL (150-450); RED BLOOD COUNT 6.01 10^6/uL (4.30-6.10); WHITE BLOOD COUNT 8.1 10^3/uL (4.0-10.0)
[2023-10-14 17:02] LABS: HEMATOCRIT 50.7 % (42.0-52.0); HEMOGLOBIN 16.5 g/dl (13.5-17.5); MEAN CORPUSCULAR HEMOGLOBIN 28.1 pg (27.0-33.0); MEAN CORPUSCULAR HGB CONC 32.5 g/dl (32.0-36.5); MEAN CORPUSCULAR VOLUME 86.2 fl (80.0-96.0); PLATELET COUNT, AUTOMATED 247 10^3/uL (150-450); RED BLOOD COUNT 5.88 10^6/uL (4.30-6.10); WHITE BLOOD COUNT 9.7 10^3/uL (4.0-10.0)
[2023-10-14 17:22] LABS: INR 0.96; PARTIAL THROMBOPLASTIN TIME 32.8 SECONDS (24.8-34.2); PROTHROMBIN TIME 12.5 SECONDS (12.5-14.5)
[2023-10-14 17:31] LABS: ALBUMIN 3.4 G/DL (3.2-5.2); ALKALINE PHOSPHATASE 65 U/L (46-116); ALT/SGPT 35 U/L (7.0-40); AST/SGOT 68 U/L (<34); BILIRUBIN,DIRECT 0.2 MG/DL (<0.4); BILIRUBIN,TOTAL 0.5 MG/DL (0.3-1.2); BLOOD UREA NITROGEN 21 MG/DL (9-23); CALCIUM LEVEL 9.3 MG/DL (8.3-10.6); CARBON DIOXIDE LEVEL 29 MMOL/L (20-31); CHLORIDE LEVEL 106 MMOL/L (98-107); GLOMERULAR FILTRATION RATE > 60.0 (>49); GLUCOSE, FASTING 110 MG/DL (74-106); POTASSIUM SERUM 4.9 MMOL/L (3.5-5.1); SODIUM LEVEL 139 MMOL/L (136-145); TOTAL PROTEIN 7.2 G/DL (5.7-8.2)
[2023-10-14 19:53] LABS: HEMATOCRIT 50.1 % (42.0-52.0); HEMOGLOBIN 16.3 g/dl (13.5-17.5)
[2023-10-14] MEDS: NS 1,000 ML IV ONE (20:00)
[2023-10-14 20:07] VITALS: BP 146/66; TEMP 98.5; O2SAT 96
== END 2023-10-14 20:55 | disposition home or self-care (01) ==
LOC: M ED 13:20
DX: K92.2 Gastrointestinal hemorrhage, unspecified (principal); K57.90 Diverticulosis of intestine, part unspecified, without perforation or abscess without bleeding; I10 Essential (primary) hypertension; E78.5 Hyperlipidemia, unspecified; K21.9 Gastro-esophageal reflux disease without esophagitis; F41.9 Anxiety disorder, unspecified; F32.A Depression, unspecified; Z79.899 Other long term (current) drug therapy

== ENCOUNTER → 2023-10-16 | Outpatient (REF) | payer MEDICARE, BC ==
[2023-10-16 18:14] LABS: IRON (FE) 155 UG/DL (65-175); PERCENT SATURATION 41.6 % (19.7-50.0); TOTAL IRON BINDING CAPACITY 373 UG/DL (250-425)
[2023-10-16 18:18] LABS: HEMATOCRIT 52.5 % (42.0-52.0); MEAN CORPUSCULAR HEMOGLOBIN 28.1 pg (27.0-33.0); MEAN CORPUSCULAR HGB CONC 32.4 g/dl (32.0-36.5); MEAN CORPUSCULAR VOLUME 86.6 fl (80.0-96.0); PLATELET COUNT, AUTOMATED 279 10^3/uL (150-450); RED BLOOD COUNT 6.06 10^6/uL (4.30-6.10); WHITE BLOOD COUNT 9.2 10^3/uL (4.0-10.0)
[2023-10-16 18:20] LABS: FERRITIN 188.5 NG/ML (10.5-307.3)
[2023-10-16 18:56] LABS: ALBUMIN 3.7 G/DL (3.2-5.2); ALKALINE PHOSPHATASE 91 U/L (46-116); ALT/SGPT 93 U/L (7.0-40); AST/SGOT 242 U/L (<34); BILIRUBIN,DIRECT 0.3 MG/DL (<0.4); BILIRUBIN,TOTAL 0.7 MG/DL (0.3-1.2); HEPATITIS B SURFACE ANTIBODY NEGATIVE (POSITIVE); HEPATITIS B SURFACE ANTIGEN NEGATIVE (NEGATIVE); HEPATITIS C VIRUS ABY INDEX < 0.02 INDEX (<0.8); TOTAL PROTEIN 7.7 G/DL (5.7-8.2)
== END ==
LOC: M SFHCCLAY 11:03
PROVIDERS: ATTEND Family Medicine
DX: K57.31 Diverticulosis of large intestine without perforation or abscess with bleeding (principal); R79.89 Other specified abnormal findings of blood chemistry

== ENCOUNTER → 2023-10-20 | Outpatient (REF) | payer MEDICARE, BC ==
[2023-10-20 17:51] LABS: HEMATOCRIT 50.7 % (42.0-52.0); HEMOGLOBIN 16.5 g/dl (13.5-17.5); MEAN CORPUSCULAR HEMOGLOBIN 28.5 pg (27.0-33.0); MEAN CORPUSCULAR HGB CONC 32.5 g/dl (32.0-36.5); MEAN CORPUSCULAR VOLUME 87.6 fl (80.0-96.0); PLATELET COUNT, AUTOMATED 238 10^3/uL (150-450); RED BLOOD COUNT 5.79 10^6/uL (4.30-6.10); WHITE BLOOD COUNT 9.7 10^3/uL (4.0-10.0)
== END ==
LOC: M SFHCCLAY 13:06
PROVIDERS: ATTEND Family Medicine
DX: K57.31 Diverticulosis of large intestine without perforation or abscess with bleeding (principal)

== ENCOUNTER → 2023-12-24 | Outpatient (CLI) | payer MEDICARE, BC ==
[~2023-12-24] MED LIST changes: +GABA-1172; +GABA-1172 PO; -GABA-282; -GABA-282 PO; -OLAN2.5T25 PO; +OLAN2.5T53 PO
== END ==
LOC: M RAD 13:34
PROVIDERS: ATTEND Internal Medicine Pulmonary Disease
DX: J44.9 Chronic obstructive pulmonary disease, unspecified (principal)

== ENCOUNTER → 2024-01-07 | Outpatient (CLI) | payer MEDICARE, BC | LOC: M CLY 13:32 | PROVIDERS: ATTEND Family Medicine | DX: J18.9 Pneumonia, unspecified organism (principal) ==

== ENCOUNTER → 2024-04-14 | Outpatient (REF) | payer MEDICARE, BC ==
[2024-04-14 19:07] LABS: BASO # 0.1 10^3/uL (0.0-0.2); BASO % 0.6 % (0.0-1.0); EOS # 0.1 10^3/uL (0.0-0.5); EOS % 0.8 % (0.0-3.0); HEMATOCRIT 51.6 % (42.0-52.0); HEMOGLOBIN 16.4 g/dl (13.5-17.5); LYMPH # 1.1 10^3/uL (1.5-5.0); LYMPH % 10.9 % (24.0-44.0); MEAN CORPUSCULAR HEMOGLOBIN 28.1 pg (27.0-33.0); MEAN CORPUSCULAR HGB CONC 31.8 g/dl (32.0-36.5); MEAN CORPUSCULAR VOLUME 88.4 fl (80.0-96.0); MONO # 0.7 10^3/uL (0.0-0.8); MONO % 6.8 % (2.0-8.0); NEUTROPHILS # 7.9 10^3/uL (1.5-8.5); NEUTROPHILS % 80.6 % (36.0-66.0); PLATELET COUNT, AUTOMATED 324 10^3/uL (150-450); RED BLOOD COUNT 5.84 10^6/uL (4.30-6.10); WHITE BLOOD COUNT 9.8 10^3/uL (4.0-10.0)
[2024-04-14 19:38] LABS: ALBUMIN 3.5 G/DL (3.2-5.2); ALKALINE PHOSPHATASE 64 U/L (40-129); ALT/SGPT 37 U/L (7.0-40); AST/SGOT 44 U/L (<34); BILIRUBIN,TOTAL 0.6 MG/DL (0.3-1.2); BLOOD UREA NITROGEN 15 MG/DL (9-23); CARBON DIOXIDE LEVEL 28 MMOL/L (20-31); CHLORIDE LEVEL 103 MMOL/L (98-107); CHOLESTEROL LEVEL 118 MG/DL (<200); CHOLESTEROL RISK RATIO 3.78 (<5); CREATININE FOR GFR 0.76 MG/DL (0.70-1.30); FREE T4 1.52 NG/DL (0.89-1.76); GLOMERULAR FILTRATION RATE > 60.0 (>49); GLUCOSE, FASTING 101 MG/DL (74-106); HDL CHOLESTEROL 31.2 MG/DL (>40); LDL CHOLESTEROL 49.8 MG/DL (<100); NON-HDL-C 86.8 MG/DL; POTASSIUM SERUM 4.7 MMOL/L (3.5-5.1); PSA SCREENING 1.18 NG/ML (< 4.00); SODIUM LEVEL 139 MMOL/L (136-145); TOTAL PROTEIN 7.4 G/DL (5.7-8.2); TRIGLYCERIDES LEVEL 185 MG/DL (<150)
[2024-04-14 19:39] LABS: THYROID STIMULATING HORMONE 1.786 uIU/ML (0.55-4.78)
[2024-04-14 20:10] LABS: HEMOGLOBIN A1c 5.5 % (4.0-6.0)
== END ==
LOC: M SFHCCLAY 14:07
PROVIDERS: ATTEND Nurse Practitioner Family
DX: Z00.00 Encounter for general adult medical examination without abnormal findings (principal); I73.89 Other specified peripheral vascular diseases; I10 Essential (primary) hypertension; E29.1 Testicular hypofunction; J44.9 Chronic obstructive pulmonary disease, unspecified; Z85.47 Personal history of malignant neoplasm of testis; G20.A1 Parkinson's disease without dyskinesia, without mention of fluctuations; F41.9 Anxiety disorder, unspecified; E78.5 Hyperlipidemia, unspecified; K21.9 Gastro-esophageal reflux disease without esophagitis; Z12.5 Encounter for screening for malignant neoplasm of prostate

== ENCOUNTER 2024-05-09 15:39 | Observation (INO) | payer MEDICARE, BC ==
[~2024-05-09] VITALS: Ht 170.2 cm; Wt 63.0 kg
[~2024-05-09 15:39] MED LIST changes: +FLUV100T20 PO; -FLUV100T25 PO
[2024-05-09 18:28] LABS: BASO # 0.1 10^3/uL (0.0-0.2); BASO % 0.6 % (0.0-1.0); EOS # 0.1 10^3/uL (0.0-0.5); EOS % 0.7 % (0.0-3.0); HEMATOCRIT 47.6 % (42.0-52.0); HEMOGLOBIN 15.7 g/dl (13.5-17.5); LYMPH % 7.6 % (24.0-44.0); MEAN CORPUSCULAR HEMOGLOBIN 28.7 pg (27.0-33.0); MONO # 0.7 10^3/uL (0.0-0.8); MONO % 5.7 % (2.0-8.0); NEUTROPHILS # 10.8 10^3/uL (1.5-8.5); NEUTROPHILS % 84.9 % (36.0-66.0); PLATELET COUNT, AUTOMATED 241 10^3/uL (150-450); RED BLOOD COUNT 5.47 10^6/uL (4.30-6.10); WHITE BLOOD COUNT 12.7 10^3/uL (4.0-10.0)
[2024-05-09 18:38] LABS: INR 0.92; PROTHROMBIN TIME 12.7 SECONDS (12.5-14.5)
[2024-05-09 18:51] LABS: CPK CREATINE PHOSPHOKINASE 91 U/L (46-171)
[2024-05-09 18:52] LABS: ALBUMIN 3.7 G/DL (3.2-5.2); ALKALINE PHOSPHATASE 92 U/L (40-129); ALT/SGPT 49 U/L (7.0-40); AST/SGOT 89 U/L (<34); BILIRUBIN,TOTAL 0.5 MG/DL (0.3-1.2); BLOOD UREA NITROGEN 22 MG/DL (9-23); CALCIUM LEVEL 9.1 MG/DL (8.3-10.6); CARBON DIOXIDE LEVEL 28 MMOL/L (20-31); CHLORIDE LEVEL 104 MMOL/L (98-107); CREATININE FOR GFR 0.74 MG/DL (0.70-1.30); GLOMERULAR FILTRATION RATE > 60.0 (>49); GLUCOSE, FASTING 135 MG/DL (74-106); POTASSIUM SERUM 4.4 MMOL/L (3.5-5.1); SODIUM LEVEL 143 MMOL/L (136-145); TOTAL PROTEIN 7.5 G/DL (5.7-8.2)
[2024-05-09 18:55] LABS: CK-MB VALUE MASS < 1.0 NG/ML (<3.6); MB/CK RELATIVE INDEX 1.09 (< OR =4)
[2024-05-09] MEDS: SINEMET**CR** 25/100 TABCR PO SCH (20:55)
[2024-05-09] MEDS: GABAPENTIN 300 MG CAP PO ONE (20:55)
[2024-05-09] MEDS ORDERED: SINEMET 25-100 MG TAB PO SCH (21:00)
[2024-05-09] MEDS ORDERED: ISOVUE-370 76% 100ML VIAL As Ordered ONE (21:06)
[2024-05-09] MEDS: PANTOPRAZOLE 40MG VIAL IV ONE (22:00)
[2024-05-09] MEDS ORDERED: ALBU8.5H INH (22:51)
[2024-05-09] MEDS ORDERED: DIAZ2TAB PO ×2 (22:51)
[2024-05-09] MEDS ORDERED: TEST25GE2 TOP (22:51)
[2024-05-09] MEDS ORDERED: LEXA1TAB PO (22:51)
[2024-05-09] MEDS ORDERED: HOME MED LIST COMPLETE! XX SCH (22:55)
[2024-05-09 23:05] LABS: HEMATOCRIT 43.2 % (42.0-52.0); HEMOGLOBIN 13.8 g/dl (13.5-17.5)
[2024-05-09] MEDS ORDERED: PILL CUTTER 1 EACH XX ONE (23:21)
[2024-05-09] MEDS: diazePAM 2 MG TAB PO ONE (23:25)
[2024-05-09] MEDS ORDERED: PANTOPRAZOLE 40MG VIAL IV ONE (23:35)
[2024-05-09] MEDS ORDERED: ALBUTEROL 90 MCG/ACT 8GM HFA INHALER INH PRN (23:35)
[2024-05-09] MEDS ORDERED: ANUSOL HC 25MG SUPP PR PRN (23:35)
[2024-05-10] MEDS: PANTOPRAZOLE 40MG VIAL IV ONE (01:44)
[2024-05-10] MEDS: LR 1,000 ML IV SCH (01:44)
[2024-05-10 07:56] LABS: ALBUMIN 3.4 G/DL (3.2-5.2); ALKALINE PHOSPHATASE 82 U/L (40-129); ALT/SGPT 61 U/L (7.0-40); AST/SGOT 69 U/L (<34); BILIRUBIN,TOTAL 0.6 MG/DL (0.3-1.2); BLOOD UREA NITROGEN 22 MG/DL (9-23); CALCIUM LEVEL 8.7 MG/DL (8.3-10.6); CARBON DIOXIDE LEVEL 26 MMOL/L (20-31); CHLORIDE LEVEL 106 MMOL/L (98-107); CREATININE FOR GFR 0.89 MG/DL (0.70-1.30); GLOMERULAR FILTRATION RATE > 60.0 (>49); GLUCOSE, FASTING 100 MG/DL (74-106); SODIUM LEVEL 143 MMOL/L (136-145); TOTAL PROTEIN 6.7 G/DL (5.7-8.2)
[2024-05-10 08:02] VITALS: BP 148/81
[2024-05-10] MEDS: SINEMET 25-100 MG TAB PO SCH (08:02)
[2024-05-10] MEDS: METOPROLOL SUCC *XL* 25MG TAB (TopROL *XL*) PO SCH (08:02)
[2024-05-10] MEDS ORDERED: PANTOPRAZOLE 40MG VIAL IV SCH (09:00)
[2024-05-10] MEDS ORDERED: LORazepam 1 MG TAB PO PRN (09:00)
[2024-05-10] MEDS: PANTOPRAZOLE 40MG TAB (PROTONIX) PO SCH (09:35)
[2024-05-10] MEDS: ESCITALOPRAM OXALATE 5MG TABLET (LEXAPRO) PO SCH (09:35)
[2024-05-10] MEDS: GABAPENTIN 300 MG CAP PO SCH (09:35)
[2024-05-10] MEDS: diazePAM 2 MG TAB PO SCH (09:36)
[2024-05-10 12:21] LABS: HEMATOCRIT 39.2 % (42.0-52.0); HEMOGLOBIN 12.7 g/dl (13.5-17.5); MEAN CORPUSCULAR HEMOGLOBIN 28.4 pg (27.0-33.0); MEAN CORPUSCULAR HGB CONC 32.4 g/dl (32.0-36.5); MEAN CORPUSCULAR VOLUME 87.7 fl (80.0-96.0); PLATELET COUNT, AUTOMATED 207 10^3/uL (150-450); RED BLOOD COUNT 4.47 10^6/uL (4.30-6.10); WHITE BLOOD COUNT 12.4 10^3/uL (4.0-10.0)
[2024-05-10] MEDS: ROSUVASTATIN 10 MG TAB (CRESTOR) PO SCH (18:37)
[2024-05-10 20:19] LABS: HEMATOCRIT 34.4 % (42.0-52.0); HEMOGLOBIN 11.3 g/dl (13.5-17.5); MEAN CORPUSCULAR HGB CONC 32.8 g/dl (32.0-36.5); MEAN CORPUSCULAR VOLUME 88.2 fl (80.0-96.0); PLATELET COUNT, AUTOMATED 190 10^3/uL (150-450); WHITE BLOOD COUNT 10.5 10^3/uL (4.0-10.0)
[2024-05-10] MEDS: SINEMET**CR** 25/100 TABCR PO SCH (20:44)
[2024-05-10] MEDS ORDERED: LORazepam 2 MG TAB PO SCH (21:00)
[2024-05-11] VITALS (9 sets, daily range): BP systolic 109–174; BP diastolic 55–96; TEMP 97.8–98.5; O2SAT 97–100
[2024-05-11 00:24] LABS: HEMATOCRIT 32.8 % (42.0-52.0); HEMOGLOBIN 10.6 g/dl (13.5-17.5)
[2024-05-11] MEDS ORDERED: INSULIN LISPRO (NovoLOG) PER UNIT SC ONE (00:40)
[2024-05-11 04:45] LABS: HEMATOCRIT 36.4 % (42.0-52.0); HEMOGLOBIN 11.6 g/dl (13.5-17.5); MEAN CORPUSCULAR HEMOGLOBIN 28.8 pg (27.0-33.0); MEAN CORPUSCULAR HGB CONC 31.9 g/dl (32.0-36.5); MEAN CORPUSCULAR VOLUME 90.3 fl (80.0-96.0); PLATELET COUNT, AUTOMATED 224 10^3/uL (150-450); RED BLOOD COUNT 4.03 10^6/uL (4.30-6.10); WHITE BLOOD COUNT 11.6 10^3/uL (4.0-10.0)
[2024-05-11 07:17] LABS: HEMATOCRIT 32.7 % (42.0-52.0); HEMOGLOBIN 10.5 g/dl (13.5-17.5)
[2024-05-11 10:52] LABS: PERCENT SATURATION 34.5 % (19.7-50.0)
[2024-05-11 10:54] LABS: FERRITIN 74.4 NG/ML (10.5-307.3)
[2024-05-11 11:01] LABS: FOLATE 23.44 NG/ML (>5.4)
[2024-05-11 12:20] LABS: HEMATOCRIT 30.8 % (42.0-52.0); MEAN CORPUSCULAR HEMOGLOBIN 28.7 pg (27.0-33.0); MEAN CORPUSCULAR HGB CONC 32.5 g/dl (32.0-36.5); MEAN CORPUSCULAR VOLUME 88.3 fl (80.0-96.0); PLATELET COUNT, AUTOMATED 189 10^3/uL (150-450); RED BLOOD COUNT 3.49 10^6/uL (4.30-6.10); WHITE BLOOD COUNT 10.4 10^3/uL (4.0-10.0)
[2024-05-11 20:26] LABS: HEMATOCRIT 29.6 % (42.0-52.0); HEMOGLOBIN 9.6 g/dl (13.5-17.5); MEAN CORPUSCULAR HEMOGLOBIN 28.6 pg (27.0-33.0); MEAN CORPUSCULAR HGB CONC 32.4 g/dl (32.0-36.5); MEAN CORPUSCULAR VOLUME 88.1 fl (80.0-96.0); PLATELET COUNT, AUTOMATED 201 10^3/uL (150-450); RED BLOOD COUNT 3.36 10^6/uL (4.30-6.10); WHITE BLOOD COUNT 9.7 10^3/uL (4.0-10.0)
[2024-05-11] MEDS: SODIUM CHLORIDE NASAL 0.65% SPRAY BTL (OCEAN) PRN (22:34)
[2024-05-12 03:51] VITALS: BP 152/67; TEMP 97.9; O2SAT 99
[2024-05-12 04:17] LABS: HEMATOCRIT 29.3 % (42.0-52.0); HEMOGLOBIN 9.6 g/dl (13.5-17.5); MEAN CORPUSCULAR HEMOGLOBIN 28.7 pg (27.0-33.0); MEAN CORPUSCULAR HGB CONC 32.8 g/dl (32.0-36.5); MEAN CORPUSCULAR VOLUME 87.5 fl (80.0-96.0); PLATELET COUNT, AUTOMATED 183 10^3/uL (150-450); RED BLOOD COUNT 3.35 10^6/uL (4.30-6.10); WHITE BLOOD COUNT 9.5 10^3/uL (4.0-10.0)
[2024-05-12 08:00] VITALS: BP 125/62; TEMP 97.9; O2SAT 99
[2024-05-12 09:43] VITALS: BP_SYST 107; BP_SYST 108; BP_SYST 116; BP_DIAS 51; BP_DIAS 54; BP_DIAS 63
[2024-05-12 12:00] VITALS: TEMP 97.3; O2SAT 98
[2024-05-12 12:39] LABS: HEMATOCRIT 30.4 % (42.0-52.0); MEAN CORPUSCULAR HEMOGLOBIN 28.9 pg (27.0-33.0); MEAN CORPUSCULAR HGB CONC 32.9 g/dl (32.0-36.5); MEAN CORPUSCULAR VOLUME 87.9 fl (80.0-96.0); PLATELET COUNT, AUTOMATED 205 10^3/uL (150-450); RED BLOOD COUNT 3.46 10^6/uL (4.30-6.10); WHITE BLOOD COUNT 8.4 10^3/uL (4.0-10.0)
== END 2024-05-12 14:16 | disposition home or self-care (01) ==
LOC: M ED 15:39 → M ED INP 23:32 → INTOOBSV 23:32 → M PCU 05-11 04:14
PROVIDERS: ADMIT Student in an Organized Health Care Education/Training Program; ATTEND Student in an Organized Health Care Education/Training Program
DX: K92.2 Gastrointestinal hemorrhage, unspecified (principal); D62 Acute posthemorrhagic anemia; D72.829 Elevated white blood cell count, unspecified; K57.90 Diverticulosis of intestine, part unspecified, without perforation or abscess without bleeding; I73.9 Peripheral vascular disease, unspecified; Z95.828 Presence of other vascular implants and grafts; I10 Essential (primary) hypertension; J44.9 Chronic obstructive pulmonary disease, unspecified; N40.0 Benign prostatic hyperplasia without lower urinary tract symptoms; F41.9 Anxiety disorder, unspecified; F32.A Depression, unspecified; R74.01 Elevation of levels of liver transaminase levels; Z85.47 Personal history of malignant neoplasm of testis; G20.A1 Parkinson's disease without dyskinesia, without mention of fluctuations; E29.1 Testicular hypofunction; J96.11 Chronic respiratory failure with hypoxia; Z99.81 Dependence on supplemental oxygen; K21.9 Gastro-esophageal reflux disease without esophagitis; E78.5 Hyperlipidemia, unspecified; G62.9 Polyneuropathy, unspecified; Z82.0 Family history of epilepsy and other diseases of the nervous system; Z82.3 Family history of stroke; Z87.891 Personal history of nicotine dependence; Z79.899 Other long term (current) drug therapy; Z79.02 Long term (current) use of antithrombotics/antiplatelets; Z79.890 Hormone replacement therapy
CPT/HCPCS: 36415; 74174; 80053; 82550; 82553; 82607; 82728; 82746; 83550; 84484; 85014; 85018; 85025; 85027; 85610; 86850; 86900; 86901; 86920; 93005; 96374; 96376; 99285; G0378; J2470; Q9967

== ENCOUNTER → 2024-05-23 | Outpatient (REF) | payer MEDICARE, BC ==
[~2024-05-23] MED LIST changes: +ALBU8.5H INH; +DIAZ2TAB PO; +LEXA1TAB PO; +TEST25GE2 TOP
[2024-05-23 18:25] LABS: BASO # 0.1 10^3/uL (0.0-0.2); BASO % 0.6 % (0.0-1.0); EOS # 0.2 10^3/uL (0.0-0.5); EOS % 1.7 % (0.0-3.0); HEMATOCRIT 35.4 % (42.0-52.0); HEMOGLOBIN 11.2 g/dl (13.5-17.5); LYMPH # 1.5 10^3/uL (1.5-5.0); LYMPH % 12.6 % (24.0-44.0); MEAN CORPUSCULAR HEMOGLOBIN 28.4 pg (27.0-33.0); MEAN CORPUSCULAR HGB CONC 31.6 g/dl (32.0-36.5); MEAN CORPUSCULAR VOLUME 89.8 fl (80.0-96.0); MONO # 0.8 10^3/uL (0.0-0.8); MONO % 7.2 % (2.0-8.0); NEUTROPHILS % 77.6 % (36.0-66.0); PLATELET COUNT, AUTOMATED 379 10^3/uL (150-450); RED BLOOD COUNT 3.94 10^6/uL (4.30-6.10); WHITE BLOOD COUNT 11.7 10^3/uL (4.0-10.0)
[2024-05-23 18:30] LABS: PERCENT SATURATION 16.2 % (19.7-50.0)
[2024-05-23 18:33] LABS: FERRITIN 23.9 NG/ML (10.5-307.3)
[2024-05-28 23:13] LABS: TESTOSTERONE FREE (DIRECT) 20.7 pg/mL (35.0-155.0)
== END ==
LOC: M SFHCCAPE 13:57
PROVIDERS: ATTEND Nurse Practitioner Family
DX: K92.2 Gastrointestinal hemorrhage, unspecified (principal); E29.1 Testicular hypofunction

== ENCOUNTER → 2024-09-19 | Outpatient (CLI) | payer MEDICARE, BC ==
[~2024-09-19] MED LIST changes: -FLOM0.4C39 PO; +TAMS-18 PO
== END ==
LOC: M RAD 11:17
PROVIDERS: ATTEND Physician Assistant
DX: I65.23 Occlusion and stenosis of bilateral carotid arteries (principal)

== ENCOUNTER → 2024-09-23 | Outpatient (CLI) | payer MEDICARE, BC | LOC: M RAD 12:36 | PROVIDERS: ATTEND Internal Medicine Pulmonary Disease | DX: Z87.891 Personal history of nicotine dependence (principal); Z12.2 Encounter for screening for malignant neoplasm of respiratory organs; R91.8 Other nonspecific abnormal finding of lung field; J43.2 Centrilobular emphysema; J47.9 Bronchiectasis, uncomplicated; I70.0 Atherosclerosis of aorta; I25.10 Atherosclerotic heart disease of native coronary artery without angina pectoris ==

== ENCOUNTER → 2024-10-13 | Outpatient (REF) | payer MEDICARE, OTHER | LOC: M LAB REF 17:06 | PROVIDERS: ATTEND Internal Medicine Pulmonary Disease | DX: Z87.891 Personal history of nicotine dependence (principal); J44.9 Chronic obstructive pulmonary disease, unspecified ==

== ENCOUNTER → 2024-10-31 | Outpatient (CLI) | payer MEDICARE, BC | LOC: M CLY 13:19 | PROVIDERS: ATTEND Internal Medicine Pulmonary Disease | DX: R91.8 Other nonspecific abnormal finding of lung field (principal); J44.9 Chronic obstructive pulmonary disease, unspecified ==

== ENCOUNTER → 2024-11-21 | Outpatient (CLI) | payer MEDICARE, BC | LOC: M PLAIMG 14:01 | PROVIDERS: ATTEND Internal Medicine Pulmonary Disease | DX: Z87.891 Personal history of nicotine dependence (principal) ==

== ENCOUNTER → 2024-12-06 | Outpatient (REF) | payer MEDICARE, BC ==
[2024-12-06 17:34] LABS: FREE T4 1.19 NG/DL (0.89-1.76)
[2024-12-06 17:35] LABS: ALT/SGPT 40 U/L (7.0-40); AST/SGOT 77 U/L (<34); BASO # 0.1 10^3/uL (0.0-0.2); BASO % 1.2 % (0.0-1.0); CALCIUM LEVEL 9.2 MG/DL (8.3-10.6); CARBON DIOXIDE LEVEL 30 MMOL/L (20-31); CHLORIDE LEVEL 100 MMOL/L (98-107); CHOLESTEROL LEVEL 133 MG/DL (<200); CHOLESTEROL RISK RATIO 4.50 (<5); CREATININE FOR GFR 0.92 MG/DL (0.70-1.30); EOS # 0.1 10^3/uL (0.0-0.5); EOS % 1.0 % (0.0-3.0); GLOMERULAR FILTRATION RATE > 90.0 (>49); IRON (FE) 42 UG/DL (65-175); LDL CHOLESTEROL 70.3 MG/DL (<100); LYMPH # 1.2 10^3/uL (1.5-5.0); LYMPH % 11.4 % (24.0-44.0); MONO # 0.7 10^3/uL (0.0-0.8); MONO % 6.5 % (2.0-8.0); NEUTROPHILS # 8.2 10^3/uL (1.5-8.5); NEUTROPHILS % 79.5 % (36.0-66.0); NON-HDL-C 103.5 MG/DL; PERCENT SATURATION 10.6 % (19.7-50.0); PLATELET COUNT, AUTOMATED 351 10^3/uL (150-450); POTASSIUM SERUM 4.4 MMOL/L (3.5-5.1); SODIUM LEVEL 142 MMOL/L (136-145); TRIGLYCERIDES LEVEL 166 MG/DL (<150)
[2024-12-06 18:58] LABS: ESTIMATED AVERAGE GLUCOSE 108.0 MG/DL (60-110)
== END ==
LOC: M SFHCCLAY 14:21
PROVIDERS: ATTEND Nurse Practitioner Family
DX: J44.9 Chronic obstructive pulmonary disease, unspecified (principal); I73.89 Other specified peripheral vascular diseases; I10 Essential (primary) hypertension; E29.1 Testicular hypofunction; Z85.47 Personal history of malignant neoplasm of testis; G20.A1 Parkinson's disease without dyskinesia, without mention of fluctuations; F41.9 Anxiety disorder, unspecified; E78.5 Hyperlipidemia, unspecified; K21.9 Gastro-esophageal reflux disease without esophagitis; K59.01 Slow transit constipation; Z79.899 Other long term (current) drug therapy

== ENCOUNTER → 2025-01-09 | Outpatient (CLI) | payer MEDICARE, BC ==
[~2025-01-09] MED LIST changes: -ROSU10TA61 PO; +ROSU10TA90 PO
== END ==
LOC: M RAD 09:59
PROVIDERS: ATTEND Nurse Practitioner Family
DX: R74.8 Abnormal levels of other serum enzymes (principal)